=== PATIENT | female | born 2000 | race Caucasian/White ===

== ENCOUNTER → 2018-04-06 10:02 | Outpatient (CLI) | payer OTHER, SELFPAY ==
--- NOTE | 2018-04-06 10:06 | RAD_ITS ---
STUDY: X-RAY - LUMBAR SPINE REASON FOR EXAM: Female, 17 years old. Back pain for 2 months TECHNIQUE: 5 view(s) of the lumbar spine were obtained. COMPARISON: None FINDINGS: Normal lumbar lordosis. There is no substantial scoliosis. There is a normal alignment of the vertebrae. Normal vertebral bodies and endplates. Normal disc space heights. The soft tissue structures are unremarkable. RAD/L/S Spine Min 4 Views IMPRESSION: Normal x-ray examination of the lumbar spine. Electronically Signed: Nguyễn Cadet MD at 14:01 EST , Service support ,
== END ==
PROVIDERS: Family Provider Pediatrics; PCP Pediatrics; Referring Provider Pediatrics; Visit Provider Pediatrics
DX: N39.0 Urinary tract infection, site not specified (principal); M54.5 Low back pain
CPT/HCPCS: 72110; 87086

== ENCOUNTER → 2019-11-01 | Outpatient (CLI) | payer OTHER, SELFPAY | END | disposition home or self-care (01) | PROVIDERS: Referring Provider Obstetrics & Gynecology; Visit Provider Obstetrics & Gynecology | DX: Z11.3 Encounter for screening for infections with a predominantly sexual mode of transmission (principal) ==

== ENCOUNTER → 2020-02-26 12:46 | Outpatient (CLI) | payer OTHER, SELFPAY ==
[2020-02-17 11:30] VITALS: BMI 21.6
--- NOTE | 2020-02-26 12:48 | ECHOD_ITS ---
Reason For Study: CHEST PAIN, HEART MURMUR Procedure This was a 2D Doppler, Color Flow transthoracic echocardiogram. Exam performed in department. Left Ventricle Normal LV size. Left ventricular systolic function is normal. The estimated ejection fraction is 60 %. No regional wall motion abnormalities noted. Right Ventricle Normal RV size. Normal systolic function. Atria Normal left atrium. Normal right atrium. Mitral Valve Normal mitral valve. Tricuspid Valve Normal tricuspid valve. Aortic Valve Normal aortic valve. Trisinus/trileaflet aortic valve. Pulmonic Valve Normal pulmonic valve. Great Vessels Normal aortic root. The pulmonary artery is normal size. Normal inferior vena cava. Pericardium/Pleural No pericardial effusion. MMode/2D Measurements & Calculations LVIDd: 5.0 cm IVSd: 0.78 cm Ao root diam: 2.3 cm LVIDs: 3.3 cm LVPWd: 0.75 cm RVDd: 2.9 cm FS: 34.1 % LAV(MOD-bp): 40.1 ml LVAd ap4: 26.6 cm2 SV(MOD-sp4): 50.0 ml LAV(MOD-bp) Indexed: 25.0 ml/m2 EDV(MOD-sp4): 80.8 ml LAV(MOD-sp2): 39.1 ml EDV(sp4-el): 82.8 ml LAV(MOD-sp4): 35.7 ml LVAs ap4: 14.5 cm2 ESV(MOD-sp4): 30.8 ml ESV(sp4-el): 31.3 ml EF(MOD-sp4): 61.9 % EF(sp4-el): 62.2 % SV(sp4-el): 51.5 ml LA A4 area: 15.0 cm2 LA dimension(2D): 3.2 cm RA A4 area: 13.5 cm2 Time Measurements MV dec time: 0.22 sec Doppler Measurements & Calculations MV E max usman: 97.2 cm/sec Lat Peak E' Usman: 24.2 cm/sec Med Peak E' Usman: 16.5 cm/sec MV A max usman: 50.8 cm/sec E/E' lat: 4.0 E/E' med: 5.9 MV E/A: 1.9 Ao V2 max: 146.8 cm/sec LV V1 max: 98.6 cm/sec PA V2 max: 114.0 cm/sec Ao max P.6 mmHg LV V1 max P.9 mmHg TR max usman: 207.8 cm/sec TR max P.3 mmHg Interpretation Summary Normal LV size. Left ventricular systolic function is normal. The estimated ejection fraction is 60 %. Structurally normal valves. Ordering Physician: ELLEN HEADLEY Referring Physician: ELLEN HEADLEY Performed By: Radha Florez RDCS
--- NOTE | 2020-02-26 13:45 | RAD_ITS ---
STUDY: X-RAY CHEST REASON FOR EXAM: Female, 19 years old. heart murmur TECHNIQUE: PA and lateral views of the chest. COMPARISON: None. FINDINGS: The lungs are clear and expanded. There is no demonstrated pleural abnormality. Normal size heart. Normal mediastinum and roxane. Normal visualized pulmonary arteries. Normal visualized aortic arch and descending thoracic aorta. Normal visualized thoracic spine. Normal visualized ribs, clavicles, and shoulders. There is no demonstrated abnormality of the visualized soft tissue structures of the upper abdomen. RAD/Chest PA and Lateral IMPRESSION: Normal x-ray examination of the chest. Electronically Signed: Paul Quinteros MD at 17:13 EST Tel , Service support ,
== END ==
DX: R07.9 Chest pain, unspecified (principal); R01.1 Cardiac murmur, unspecified
CPT/HCPCS: 71046; 93306

== ENCOUNTER → 2020-03-02 | Outpatient (CLI) | payer OTHER, SELFPAY ==
[2020-02-17 11:30] VITALS: BMI 21.6
[2020-03-04 20:41] LABS: HPV Reflexed? NOT INDICATED
== END | disposition home or self-care (01) ==
LOC: LABSPEC 13:22
PROVIDERS: Visit Provider Student in an Organized Health Care Education/Training Program
DX: Z12.4 Encounter for screening for malignant neoplasm of cervix (principal)
CPT/HCPCS: 88175; G0145

== ENCOUNTER 2020-05-11 12:06 | Emergency (ER) | payer OTHER, SELFPAY ==
[2020-02-17 11:30] VITALS: BMI 21.6
[2020-05-11 12:07] VITALS: BP 147/74; PULSE 100; RESP 18; TEMP 36.7; O2SAT 100; BMI 20.7
[2020-05-11] MEDS: Ondansetron ODT 4 MG Tablet 8 MG PO (12:41)
[2020-05-11 13:08] LABS: Absolute Neutrophil Count 6.1 X10^3/uL (2.0-7.7); Basophil# 0.04 X10^3/uL; Basophil% 0.4 % (0-1); Eosinophils% 6.6 % (0-5); Hematocrit 41.1 % (37-47); Hemoglobin 13.7 g/dL (12.0-15.0); Lymphocyte % 20.9 % (19-41); Mean Corp Hgb Conc 33.3 g/dL (32-36); Mean Corpuscular Hgb 30.9 pg (27.0-32.0); Mean Corpuscular Volume 92.8 fL (81-99); Mean Platelet Vol. 9.2 fl (6.2-12.0); Monocyte# 0.44 X10^3/uL; Monocyte% 4.9 % (0-10); NRBC Flagged by Analyzer 0 % (0-5); Neutrophil # 6.07 X10^3/uL (2.7-7.7); Platelet Count 265 K/mm3 (150-450); RBC Distribution Width CV 12.6 % (11.6-14.6); RBC Distribution Width SD 42.9 fl (35.1-43.9); Red Blood Count 4.43 M/mm3 (4.2-5.4); White Blood Count 9.1 K/mm3 (4.4-11.0)
[2020-05-11 13:28] LABS: Anion Gap 4 (5-15); BUN 13 mg/dL (7-18); BUN/Creat Ratio 19.1 RATIO (10-20); Calcium,Total 9.5 mg/dL (8.5-10.1); Chloride 105 mmol/L (98-107); Creatinine, Serum 0.68 mg/dL (0.55-1.02); EST Glomerular Filtration Rate 115 mL/min (>60); Est Glom Filt Rate - Afr Amer 139 mL/min (>60); Estimated Creatinine Clearance 113.01 ml/min; Glucose 117 mg/dL (74-106); Potassium 3.3 mmol/L (3.5-5.1); Sodium Level 138 mmol/L (136-145)
[2020-05-11 13:30] LABS: Internal QC Validated? YES +Cl - CLEAR BKGD; Pregnancy, Serum, hCG Quali. NEGATIVE Negative
--- NOTE | 2020-05-11 14:15 | ED.DCSUM_ITS ---
History of Present Illness Chief Complaint: Nausea/Vomiting Informant: Patient - Abdominal Pain/Flank Pain Onset: Month(s) - 1 Context: Gradual Onset - seems random, but more often in AMs Timing: Intermittent Quality: - - no pain, just vomiting Worsened by: - - sometimes w/ food Relieved by: Nothing - Nausea/Vomiting/Emesis GI Symptom: Vomiting - without feeling sick Onset: Month(s) - 1 - Diarrhea/Melena/Hematochezia GI Symptom: Negative for: Diarrhea, Melena, Hematochezia Associated Symptoms: Negative for: Dysuria, Frequency, Hematuria, Urgency Narrative: Patient states she has been vomiting for the past month, not every day but most, more often in the mornings. Sometimes it is after eating but other times it is completely random without triggering with food. She denies any hematemesis. She denies any abdominal pain. She denies any bowel changes. She states her menstrual cycles have been regular, every month, and the last one started yesterday. She has had a couple of episodes of orthostasis where she stands up and feels lightheaded and if she does not sit down quickly, she briefly has passed out a couple times but none of those have been recently in the past several days. She has not injured herself. She has been trying to keep down liquids and food when she is able. She last had intercourse October of last year, and is not currently sexually active. She has a normal vaginal discharge and has had no changes from that. She denies any other vaginal symptoms. She denies any known medical problems or past surgeries. Past Medical History - Allergies and Home Meds Allergies/Adverse Reactions: Allergies No Known Allergies Allergy (Unverified 02/17/20 11:30) Primary Care Physician: ELLEN HEADLEY [Other] Smoking Status: Never smoker Drugs: None Review of Systems General: Reports: Malaise. Denies: Chills, Fever, Sweats Eyes: Denies: Visual changes - bilaterally, Diplopia ENT: Denies: Rhinorrhea, Sore throat Cardiovascular: Denies: Chest pain, Palpitations Respiratory: Denies: Dyspnea, Cough, Dyspnea on exertion Gastrointestinal: Reports: Vomiting. Denies: Abdominal pain, Diarrhea, Melena, Hematochezia Genitourinary: Denies: Dysuria, Hematuria, Frequency Musculoskeletal: Denies: Back pain, Swelling, Extremity Pain Skin: Denies: Rash, Wounds Neurological: Denies: Headache, Weakness, Numbness Physical Exam Vital Signs/Narrative: Vital Signs Temp Pulse Resp BP Pulse Ox 05/11/20 12:07 98.0 F 100 18 147/74 H 100 Inital Vital Signs reviewed: Yes General: Well nourished, Well developed, No Acute Distress - Well-appearing Head: Normocephalic, Atraumatic Eyes: Perrl, EOMI ENT: Moist mucous membranes, No rhinorrhea. Negative for: Sinus tenderness Neck: Supple, Nontender, No lymphadenopathy Cardiovascular: Regular rate, Regular rhythm, No murmurs Respiratory: No distress, CTA bilaterally, Chest nontender Abdomen: Soft, Nontender, Nondistended, Normal bowel sounds Back: Nontender, Normal Inspection Extremities: Nontender, No edema Skin: Normal color, No rash, No Trauma Neurological: Alert, Oriented x3, Cranial nerves II-XII grossly intact, Normal Strength, Normal Sensation Psychological: Normal affect, Normal Mood Diagnostic/Tx/Re-eval Laboratory Tests 05/11/20 05/11/20 05/11/20 Range/Units 13:00 13:00 13:00 WBC 9.1 (4.4-11.0) K/mm3 RBC 4.43 (4.2-5.4) M/mm3 Hgb 13.7 (12.0-15.0) g/dL Hct 41.1 (37-47) % MCV 92.8 (81-99) fL MCH 30.9 (27.0-32.0) pg MCHC 33.3 (32-36) g/dL RDW Std Deviation 42.9 (35.1-43.9) fl RDW Coeff of Armani 12.6 (11.6-14.6) % Plt Count 265 (150-450) K/mm3 MPV 9.2 (6.2-12.0) fl Immature Gran % (Auto) 0.200 (0.0-0.9) % Neut % (Auto) 67.0 (47-70) % Lymph % (Auto) 20.9 (19-41) % [place] % (Auto) 4.9 (0-10) % Eos % (Auto) 6.6 H (0-5) % Baso % (Auto) 0.4 (0-1) % Absolute Neuts (auto) 6.1 (2.0-7.7) X10^3/uL Absolute Lymphs (auto) 1.90 (0.83-4.51) X10^3/uL Nucleated RBC % 0 (0-5) % Sodium 138 (136-145) mmol/L Potassium 3.3 L (3.5-5.1) mmol/L Chloride 105 (98-107) mmol/L Carbon Dioxide 29.0 (21.0-32.0) mmol/L Anion Gap 4 L (5-15) BUN 13 (7-18) mg/dL Creatinine 0.68 (0.55-1.02) mg/dL Estim Creat Clear Calc 113.01 ml/min Est GFR (MDRD) Af Amer 139 (>60) mL/min Est GFR (MDRD) Non-Af 115 (>60) mL/min BUN/Creatinine Ratio 19.1 (10-20) RATIO Glucose 117 H (74-106) mg/dL Calcium 9.5 (8.5-10.1) mg/dL Serum , Qual NEGATIVE Negative - Medical Decision Making test is negative, potassium is a little low, the rest of her labs are unremarkable. I do not think imaging of her abdomen is going to help in this particular scenario. She was given Zofran and was able to keep down some oral fluids in addition to potassium tablets since her level was 3.3. I think would be reasonable to treat her for intraluminal disease such as gastritis and have her follow-up with her PCP, we discussed all this and she is comfortable with that plan. Prescribe Zofran to use as well. ED Disposition - Plan for ED Patient: Disposition: Home or Assisted Living Diagnosis: Vomiting, Hypokalemia due to excessive gastrointestinal loss of potassium Instructions: ED Hypokalemia, ED Diet for Vomiting or Diarrhea Adult Prescriptions: Pantoprazole Sodium [Protonix] 40 mg PO DAILY #30 tab Transmission Status: Pending to [facility] Ondansetron [Zofran Odt] 8 mg PO Q8H PRN PRN #20 tablet PRN Reason: Nausea Transmission Status: Pending to [facility] Referrals: ELLEN HEADLEY [Other] - 1-2 Weeks
[2020-05-11] MEDS: Potassium Chloride Oral Tablet 20 MEQ 40 MEQ PO (15:12)
[2020-05-11 15:16] VITALS: BP 110/53; PULSE 55; RESP 14; O2SAT 96
== END 2020-05-11 15:43 | disposition home or self-care (01) ==
PROVIDERS: Emergency Provider Emergency Medicine
DX: R11.2 Nausea with vomiting, unspecified (principal); E87.6 Hypokalemia
CPT/HCPCS: 80048; 84703; 85025; 99283

== ENCOUNTER 2020-09-13 01:35 | Emergency (ER) | payer OTHER, SELFPAY ==
[2020-08-24 12:35] VITALS: BMI 19.7
[2020-09-13 01:36] VITALS: BP 116/68; PULSE 77; RESP 16; TEMP 36.9; O2SAT 100; BMI 20.7
[2020-09-13 01:38] VITALS: BP 116/68; PULSE 77; RESP 16; TEMP 36.9; O2SAT 100
--- NOTE | 2020-09-13 01:47 | RAD_ITS ---
STUDY: X-RAY - RIGHT FOOT CLINICAL: Female, 20 years old. foot pain TECHNIQUE: 3 view(s) of the foot. COMPARISON: None. FINDINGS: Normal talus, calcaneus, and tarsal bones. Normal visualized subtalar, talonavicular, calcaneocuboid, tarsal and tarsometatarsal articulations. Normal metatarsi. Normal metatarsophalangeal joint of the great toe. Normal tibial and fibular sesamoid bones. Normal interphalangeal joint of the great toe. Normal phalanges of the great toe. Normal second through fifth metatarsophalangeal joints. Normal interphalangeal joints and phalanges of the lesser toes. The soft tissue structures are unremarkable. RAD/Foot min 3 Views IMPRESSION: Normal x-ray examination of the foot. Electronically Signed: Main Wolf MD at 2:43 EDT Tel , Service support ,
--- NOTE | 2020-09-13 02:32 | ED.VIS.LOWEX ---
HPI History of Present Illness Chief Complaint: Lower Extremity Injury Narrative Narrative: 20-year-old female presenting with right foot pain. She states she was walking yesterday and the side was unlevel and she twisted her foot awkwardly. She states is painful to walk on. She denies any numbness or tingling. She denies ankle pain or knee pain. She has tried ibuprofen at home. States he iced it for a couple of minutes but states it made it hurt so she stopped. PFSH PFSH Home Medications ondansetron HCl 4 mg tablet 4 mg PO Q6H PRN #10 tab 02/17/20 [Rx Last Taken Unknown] ondansetron 8 mg PO Q8H PRN PRN #20 tablet 05/11/20 [Rx Last Taken Unknown] pantoprazole 40 mg PO DAILY #30 tab 05/11/20 [Rx Last Taken Unknown] azithromycin 250 mg tablet See Rx Instructions PO .COMPLEX #6 tab 08/24/20 [Rx Last Taken Unknown] naproxen [Naprosyn] 500 mg PO BID PRN #30 tab 09/13/20 [Rx Last Taken Unknown] Allergy/AdvReac Type Severity Reaction Status Date / Time No Known Allergies Allergy Unverified 08/24/20 12:36 Social History Smoking Status: Never smoker ROS [facility] ED Constitutional Constitutional ED: Denies chills, fever(s) or sweats Eyes Eyes: Denies blurry vision or diplopia ENT ENT ED: Denies rhinorrhea or sore throat Cardiovascular Cardiovascular: Denies palpitations or racing heartbeat Respiratory/Chest Respiratory/Chest: Denies cough, dyspnea or sputum Gastrointestinal Gastrointestinal: Denies abdominal pain, nausea or vomiting Genitourinary Genitourinary ED: Denies dysuria or hematuria Musculoskeletal Musculoskeletal: Reports other Details: right foot pain ; Denies back pain Integumentary Denies Abrasions or rash Neurologic Neurologic: Denies headache(s) or paresthesias EXAM Physical Exam Const Vital Signs: 09/13/20 01:36 09/13/20 01:38 Temperature 98.5 F 98.5 F Temperature Source Temporal Temporal Pulse Rate 77 77 Respiratory Rate 16 16 Blood Pressure 116/68 116/68 Blood Pressure Mean 84 84 Pulse Ox 100 100 Oxygen Delivery Method Room Air Room Air Positive well nourished General Appearance ED: NAD HEENT Reports moist mucous membranes normocephalic and atraumatic Eyes PERRL Eyes Narrative: EOMI Resp normal respiratory effort, no retractions and no use of accessory muscles Cardio regular rate and regular rhythm GI non-tender and non-distended Palpation: soft Extremity Extremity Narrative: Tenderness to palpation over the dorsum of the right foot diffusely. There is slight bruising on the lateral aspect of the foot. 2+ pedal pulses. Sensation is intact. Brisk cap refill to all 5 toes. Neuro oriented x3 Sensorium / Orientation: alert Psych mental status grossly normal Skin Lesions: no lesions Rashes: no rashes MDM MDM MDM Narrative Medical decision making narrative: Patient presenting with right foot pain after twisting it while walking on uneven service. He declined analgesia in the ED. I did obtain a foot x-ray which on my interpretation shows no acute fracture or subluxation. Patient states that she is having difficulty walking and wishes to have an Quintin wrap and crutches. This was provided. I gave her a prescription for Naprosyn as well. Patient discharged home in stable condition. Impression: 1. Right foot sprain Radiography Diagnostic Testing: Radiology Impression Foot X-Ray 09/13/20 01:47 IMPRESSION: Normal x-ray examination of the foot. Electronically Signed: Main Wolf MD at 2:43 EDT Tel , Service support , Discharge Plan Triage Chief Complaint: Lower Extremity Injury ED Provider: Angel Seaman Dx/Rx/DC Orders Instructions: ED Foot Sprain Prescriptions: New naproxen [Naprosyn] 500 mg tablet 500 mg PO BID PRN (Reason: pain) Qty: 30 RF: 0 No Action ondansetron HCl [Zofran] 4 mg tablet 4 mg PO Q6H PRN (Reason: nausea and vomiting) Qty: 10 RF: 0 azithromycin 250 mg tablet See Rx Instructions PO .COMPLEX Qty: 6 RF: 0 ondansetron 4 MG tablet 8 mg PO Q8H PRN PRN (Reason: Nausea) Qty: 20 RF: 0 pantoprazole 40 MG tablet 40 mg PO DAILY Qty: 30 RF: 0 Primary Care Provider: Care Physician,No Primary Referrals: Fadia Rivera DPM [STAFF PHYSICIAN] - As Needed Care Physician,No Primary [Primary Care Provider] - Disposition Disposition: Home, Self Care Discharge Date/Time: 09/13/20 03:07
== END 2020-09-13 03:07 | disposition home or self-care (01) ==
PROVIDERS: Emergency Provider Student in an Organized Health Care Education/Training Program
DX: S93.601A Unspecified sprain of right foot, initial encounter (principal); X50.1XXA Overexertion from prolonged static or awkward postures, initial encounter; Y93.01 Activity, walking, marching and hiking; Y92.9 Unspecified place or not applicable; Y99.9 Unspecified external cause status; Z79.1 Long term (current) use of non-steroidal anti-inflammatories (NSAID); Z79.899 Other long term (current) drug therapy
CPT/HCPCS: 73630; 99283

== ENCOUNTER 2021-04-18 17:20 | Emergency (ER) | payer OTHER, SELFPAY ==
[2021-04-18 17:21] VITALS: BP 113/58; PULSE 63; RESP 16; TEMP 37.4; O2SAT 98; BMI 18.8
--- NOTE | 2021-04-18 18:00 | EDS_ITS ---
HPI HPI - GI History of Present Illness Chief Complaint: Nausea/Vomiting Informant: patient and parent Abdominal Pain/Flank Pain Onset: Days Context: Gradual Onset Timing: Continuous Quality: Aching Location: Epigastric Current Severity: Mild Maximum Severity: Mild Worsened by: Nothing Relieved by: Nothing Nausea/Vomiting/Emesis GI Symptom: Positive for Nausea and Vomiting Onset: Days Quality: Positive for Nonbilious Severity: Moderate Diarrhea/Melena/Hematochezia GI Symptom: Negative for Diarrhea, Melena and Hematochezia Associated Symptoms Associated Symptoms: Negative for Dysuria, Frequency, Hematuria and Urgency Narrative Narrative: 20-year-old female no sniffing past medical history. No prior abdominal surgeries. She does willingly admit to smoking marijuana. States since Monday she has had nausea and vomiting for last 3 days. Increasing belching. She had a prior history of this but not that lasted this long or this severe. She denies any abdominal trauma. No dysuria. No fever. No melena or hematemesis. Prior similar symptoms: Yes Recent Illness/Hospitalization: No PFSH PFSH Medical History no medical history no medical history Home Medications ondansetron HCl 4 mg tablet 4 mg PO Q6H PRN #10 tab 02/17/20 [Rx Last Taken Unknown] ondansetron 8 mg PO Q8H PRN PRN #20 tablet 05/11/20 [Rx Last Taken Unknown] pantoprazole 40 mg PO DAILY #30 tab 05/11/20 [Rx Last Taken Unknown] azithromycin 250 mg tablet See Rx Instructions PO .COMPLEX #6 tab 08/24/20 [Rx Last Taken Unknown] naproxen [Naprosyn] 500 mg PO BID PRN #30 tab 09/13/20 [Rx Last Taken Unknown] ondansetron 4 mg PO Q6H PRN #7 tab 04/18/21 [Rx Last Taken Unknown] Allergy/AdvReac Type Severity Reaction Status Date / Time No Known Allergies Allergy Verified 04/18/21 17:21 Social History Smoking Status: Never smoker ROS ROS ED ROS Narrative Nausea and vomiting. Abdominal pain. Review of Systems ROS Unobtainable: Denies due to encephalopathy Constitutional Constitutional ED: Denies fever(s) ENT ENT ED: Denies ear pain Cardiovascular Cardiovascular: Denies chest pain Respiratory/Chest Respiratory/Chest: Denies cough or dyspnea Gastrointestinal Gastrointestinal: Reports abdominal pain, nausea and vomiting Genitourinary Genitourinary ED: Denies dysuria or hematuria Musculoskeletal Musculoskeletal: Denies myalgias Integumentary Denies rash Neurologic Neurologic: Denies headache(s) Psychiatric Psychiatric: Denies depression Endocrine Endocrinology: Denies polyuria Hematologic/Lymphatic Hematologic/Lymphatic: Denies easy bruising Allergic/Immunologic Allergic/Immunologic ED: Denies urticaria EXAM Physical Exam Narrative Exam Narrative: 20-year-old female no acute distress vital signs stable afebrile. H EENT exam unremarkable other mild dry mucous memories. Neck nontender. Lungs clear to auscultation bilaterally. Heart regular rate and rhythm rate about 65 no murmur. Abdomen soft nondistended normal bowel sounds no peritoneal signs. No distention. No signs of obstruction. No hernia or mass. Moving all 4 extremities. Normal consumer services consultant strength. Normal dorsi plantar flexion. Back nontender. Neurologically awake and alert with no focal motor deficits. Const Vital Signs: 04/18/21 17:21 Temperature 99.3 F H Temperature Source Temporal Pulse Rate 63 Respiratory Rate 16 Blood Pressure 113/58 L Blood Pressure Mean 76 Pulse Ox 98 Positive well nourished and well developed; Negative for obese, cachectic, contractures or unkempt General Appearance ED: well developed and NAD; Negative for unkempt, cachectic, contractures or pallor Nutritional Appearance: Negative for cachectic or obese HEENT Reports dry mucous membranes; Denies moist mucous membranes normocephalic and atraumatic Mouth ED: Yes dry mucous membranes Mouth: dry mucous membranes Eyes PERRL and EOMs intact bilaterally Neck no lymphadenopathy, supple and no JVD General: Negative for tenderness Resp normal respiratory effort and clear to auscultation bilaterally Auscultation: Negative for rales, rhonchi or wheezes Cardio regular rate, regular rhythm, S1 normal heart sound, S2 normal heart sound and no murmurs GI non-tender, non-distended and no masses Auscultation: normoactive bowel sounds Palpation: soft; Negative for tender, guarding, rigid or rebound tenderness present Back/Spine no CVA tenderness General Back: Negative for CVA tenderness Cervical Spine: Negative for cervical spine tenderness Extremity full ROM General Extremety ED: Negative for edema or tenderness General Extremity: Negative for edema Neuro moves all extremities Sensorium / Orientation: alert, oriented to person, oriented to place and oriented to time; Negative for orientation impaired, confused, lethargic or stuporous Motor Exam: strength 5/5 throughout Psych mental status grossly normal and thought process normal Appearance: Negative for unkempt Attitude: No agitated Mood & Affect: anxious; Negative for depressed or tearful Skin no wounds General Skin Exam: Negative for jaundice or pallor Lesions: no lesions Rashes: no rashes MDM MDM MDM Narrative Medical decision making narrative: 20-year-old female with nausea and vomiting. Possibly viral syndrome also may be secondary to her using marijuana versus other etiologies. She will be treated IV fluids and IV Zofran and reassess. P.o. fluid challenge. Labs are pending. At this time she does not need any imaging. Her abdomen is benign. Repeat exam patient doing well at 7:40 PM. Exam benign. Unchanged. Abdomen soft nontender. Patient be discharged home. Instructed to stop using marijuana which may be what is causing her nausea and vomiting. Zofran for nausea. And outpatient follow-up. Lab Data Attestation: I reviewed the patient's lab results. Lab results narrative: CBC shows a white count 11. H&H 14 and 40. Normal platelets. Electrolytes unremarkable gap of 6 normal BUN and creatinine. Liver enzymes normal. Glucose 115. Normal lipase. test negative. Labs: Laboratory Results - last 24 hr 04/18/21 04/18/21 04/18/21 18:35 18:35 18:35 WBC 11.2 H RBC 4.40 Hgb 14.2 Hct 40.4 MCV 91.8 MCH 32.3 H MCHC 35.1 RDW Std Deviation 42.8 RDW Coeff of Armani 12.7 Plt Count 297 MPV 9.4 Immature Gran % (Auto) 0.400 Neut % (Auto) 85.9 H Lymph % (Auto) 10.1 L [place] % (Auto) 3.3 Eos % (Auto) 0.1 Baso % (Auto) 0.2 Absolute Neuts (auto) 9.7 H Absolute Lymphs (auto) 1.14 Nucleated RBC % 0 Sodium 138 Potassium 3.5 Chloride 105 Carbon Dioxide 27.0 Anion Gap 6 BUN 12 Creatinine 0.77 Estim Creat Clear Calc 87.20 Est GFR (MDRD) Af Amer 120 Est GFR (MDRD) Non-Af 99 BUN/Creatinine Ratio 15.6 Glucose 115 H Calcium 9.8 Total Bilirubin 0.40 AST 13 L ALT 17 Alkaline Phosphatase 40 L Total Protein 7.9 Albumin 4.2 Globulin 3.7 Albumin/Globulin Ratio 1.1 Lipase 81 Serum , Qual NEGATIVE Discharge Plan Triage Chief Complaint: Nausea/Vomiting ED Provider: Serge Sherman Dx/Rx/DC Orders Clinical Impression: Nausea & vomiting, Cannabis use disorder, mild, abuse Instructions: ED Marijuana Abuse, ED Vomiting (Adult) Prescriptions: New ondansetron 4 mg tablet,disintegrating 4 mg PO Q6H PRN (Reason: nausea and vomiting) Qty: 7 RF: 0 No Action ondansetron HCl [Zofran] 4 mg tablet 4 mg PO Q6H PRN (Reason: nausea and vomiting) Qty: 10 RF: 0 azithromycin 250 mg tablet See Rx Instructions PO .COMPLEX Qty: 6 RF: 0 ondansetron 4 MG tablet 8 mg PO Q8H PRN PRN (Reason: Nausea) Qty: 20 RF: 0 pantoprazole 40 MG tablet 40 mg PO DAILY Qty: 30 RF: 0 naproxen [Naprosyn] 500 mg tablet 500 mg PO BID PRN (Reason: pain) Qty: 30 RF: 0 Primary Care Provider: Care Physician,No Primary Referrals: Arabella Whaley MD [NON-STAFF] - 3-5 Days if not improving Care Physician,No Primary [Primary Care Provider] - Activity Restrictions/Additional Instructions: Plenty of fluids and rest. Zofran as needed for nausea Stop smoking marijuana that may be the cause of your nausea and vomiting. Follow-up with a local primary care physician. Disposition Disposition: Home, Self Care
[2021-04-18] MEDS: 0.9% Normal Saline 1,000 ML 1000 ML IV (18:43)
[2021-04-18] MEDS: Ondansetron 4 MG/2 ML Vial IV (18:43)
[2021-04-18 18:52] LABS: Absolute Lymphocyte Count 1.14 X10^3/uL (0.83-4.51); Absolute Neutrophil Count 9.7 X10^3/uL (2.0-7.7); Basophil# 0.02 X10^3/uL; Basophil% 0.2 % (0-1); Eosinophil# 0.01 X10^3/uL; Eosinophils% 0.1 % (0-5); Hematocrit 40.4 % (37-47); Hemoglobin 14.2 g/dL (12.0-15.0); Lymphocyte # 1.14 X10^3/ul (0.83-4.51); Lymphocyte % 10.1 % (19-41); Mean Corp Hgb Conc 35.1 g/dL (32-36); Mean Corpuscular Hgb 32.3 pg (27.0-32.0); Mean Corpuscular Volume 91.8 fL (81-99); Mean Platelet Vol. 9.4 fl (6.2-12.0); Monocyte# 0.37 X10^3/uL; Monocyte% 3.3 % (0-10); NRBC Flagged by Analyzer 0 % (0-5); Neutrophil # 9.66 X10^3/uL (2.7-7.7); Neutrophil % 85.9 % (47-70); Platelet Count 297 K/mm3 (150-450); RBC Distribution Width CV 12.7 % (11.6-14.6); RBC Distribution Width SD 42.8 fl (35.1-43.9); White Blood Count 11.2 K/mm3 (4.4-11.0)
[2021-04-18 19:10] LABS: ALB/GLOB Ratio 1.1 RATIO (0.9-2.4); AST(SGOT) 13 U/L (15-37); Alanine Aminotransfer ALT/SGPT 17 U/L (13-56); Albumin, Serum 4.2 g/dL (3.2-5.0); Alkaline Phosphatase 40 U/L (45-117); Anion Gap 6 (5-15); BUN 12 mg/dL (7-18); BUN/Creat Ratio 15.6 RATIO (10-20); Calcium,Total 9.8 mg/dL (8.5-10.1); Chloride 105 mmol/L (98-107); Creatinine, Serum 0.77 mg/dL (0.55-1.02); EST Glomerular Filtration Rate 99 mL/min (>60); Est Glom Filt Rate - Afr Amer 120 mL/min (>60); Globulin 3.7 g/dL (2.2-4.2); Glucose 115 mg/dL (74-106); Lipase 81 U/L (73-393); Potassium 3.5 mmol/L (3.5-5.1); Protein, Total 7.9 g/dL (6.4-8.2); Sodium Level 138 mmol/L (136-145)
[2021-04-18 19:19] LABS: Internal QC Validated? YES +Cl - CLEAR BKGD; Pregnancy, Serum, hCG Quali. NEGATIVE Negative
== END 2021-04-18 20:10 | disposition home or self-care (01) ==
PROVIDERS: Emergency Provider Emergency Medicine; Visit Provider Emergency Medicine
DX: R11.2 Nausea with vomiting, unspecified (principal); F12.10 Cannabis abuse, uncomplicated; R14.2 Eructation; Z79.1 Long term (current) use of non-steroidal anti-inflammatories (NSAID)
CPT/HCPCS: 80053; 83690; 84703; 85025; 96361; 96374; 99285; J7030; A4216; J2405

== ENCOUNTER → 2021-10-04 | Outpatient (CLI) | payer OTHER, SELFPAY ==
[2021-10-08 13:31] LABS: HPV Reflexed? NOT INDICATED
== END | disposition home or self-care (01) ==
LOC: LABSPEC 16:18
PROVIDERS: Visit Provider Student in an Organized Health Care Education/Training Program
DX: Z12.4 Encounter for screening for malignant neoplasm of cervix (principal)
CPT/HCPCS: 88175; G0145

== ENCOUNTER → 2022-01-12 | Outpatient (CLI) | payer OTHER, SELFPAY | END | disposition home or self-care (01) | LOC: LABSPEC 16:11 | PROVIDERS: Visit Provider Obstetrics & Gynecology | DX: R30.0 Dysuria (principal); N76.0 Acute vaginitis | CPT/HCPCS: 87086; 87088 ==

== ENCOUNTER → 2022-10-10 | Outpatient (CLI) | payer OTHER, SELFPAY ==
[2022-10-10 13:19] LABS: Absolute Lymphocyte Count 1.41 X10^3/uL (0.83-4.51); Absolute Neutrophil Count 6.8 X10^3/uL (2.0-7.7); Basophil# 0.04 X10^3/uL; Basophil% 0.4 % (0-1); Eosinophil# 0.16 X10^3/uL; Eosinophils% 1.8 % (0-5); Hematocrit 37.4 % (37-47); Hemoglobin 12.3 g/dL (12.0-15.0); Lymphocyte # 1.41 X10^3/ul (0.83-4.51); Lymphocyte % 15.6 % (19-41); Mean Corp Hgb Conc 32.9 g/dL (32-36); Mean Corpuscular Hgb 30.4 pg (27.0-32.0); Mean Corpuscular Volume 92.3 fL (81-99); Mean Platelet Vol. 9.7 fl (6.2-12.0); Monocyte# 0.57 X10^3/uL; Monocyte% 6.3 % (0-10); NRBC Flagged by Analyzer 0 % (0-5); Neutrophil % 75.6 % (47-70); Platelet Count 263 K/mm3 (150-450); RBC Distribution Width CV 12.2 % (11.6-14.6); RBC Distribution Width SD 41.4 fl (35.1-43.9); Red Blood Count 4.05 M/mm3 (4.2-5.4)
[2022-10-10 21:38] LABS: HIV - WCH Non-Reactive (Nonreactive); Hepatitis B Surface Antigen Non-Reactive (Nonreactive); Hepatitis C Antibody Non-Reactive (Nonreactive); Rubella IgG Non-Reactive (Nonreactive); Syphilis Antibodies Non-reactive
[2022-10-12 05:07] LABS: V-Zoster IgG (Immunity) < 135 index (Immune >165)
== END | disposition home or self-care (01) ==
LOC: WOBLAB 12:04
PROVIDERS: Visit Provider Student in an Organized Health Care Education/Training Program
DX: Z34.81 Encounter for supervision of other normal pregnancy, first trimester (principal); Z3A.00 Weeks of gestation of pregnancy not specified
CPT/HCPCS: 36415; 85025; 86703; 86762; 86780; 86787; 86803; 87077; 87086; 87088; 87186; 87340

== ENCOUNTER → 2022-12-02 | Outpatient (CLI) | payer OTHER, SELFPAY ==
[2022-12-06 07:08] LABS: Chlamydia By Nucleic Acid AMP Negative (Negative); Gonococcus By Nucleic Acid AMP Negative (Negative)
== END | disposition home or self-care (01) ==
LOC: LABSPEC 16:49
PROVIDERS: Referring Provider Advanced Practice Midwife; Visit Provider Advanced Practice Midwife
DX: O09.90 Supervision of high risk pregnancy, unspecified, unspecified trimester (principal); Z3A.00 Weeks of gestation of pregnancy not specified
CPT/HCPCS: 87077; 87086; 87088; 87186; 87491; 87591

== ENCOUNTER → 2022-12-28 | Outpatient (CLI) | payer OTHER, SELFPAY | END | disposition home or self-care (01) | LOC: LAB 13:15 | PROVIDERS: Referring Provider Nurse Practitioner Women's Health; Visit Provider Nurse Practitioner Women's Health | DX: O09.899 Supervision of other high risk pregnancies, unspecified trimester (principal); Z28.39 Other underimmunization status; Z3A.00 Weeks of gestation of pregnancy not specified | CPT/HCPCS: 87070; 87077; 87186; 87205 ==

== ENCOUNTER → 2022-12-30 | Outpatient (CLI) | payer OTHER, SELFPAY | END | disposition home or self-care (01) | LOC: US 14:25 | PROVIDERS: Referring Provider Advanced Practice Midwife; Visit Provider Advanced Practice Midwife | DX: Z00.00 Encounter for general adult medical examination without abnormal findings (principal) ==

== ENCOUNTER → 2023-01-25 | Outpatient (CLI) | payer OTHER, SELFPAY | END | disposition home or self-care (01) | LOC: LABSPEC 16:06 | PROVIDERS: Referring Provider Obstetrics & Gynecology; Visit Provider Obstetrics & Gynecology | DX: O26.899 Other specified pregnancy related conditions, unspecified trimester (principal); R30.0 Dysuria; Z3A.00 Weeks of gestation of pregnancy not specified | CPT/HCPCS: 87077; 87086; 87088; 87186 ==

== ENCOUNTER → 2023-02-21 | Outpatient (CLI) | payer OTHER, SELFPAY ==
[2023-02-21 13:22] LABS: Absolute Lymphocyte Count 0.97 X10^3/uL (0.83-4.51); Absolute Neutrophil Count 7.6 X10^3/uL (2.0-7.7); Basophil# 0.02 X10^3/uL; Basophil% 0.2 % (0-1); Eosinophil# 0.09 X10^3/uL; Hematocrit 31.2 % (37-47); Hemoglobin 10.9 g/dL (12.0-15.0); Lymphocyte # 0.97 X10^3/ul (0.83-4.51); Lymphocyte % 10.5 % (19-41); Mean Corp Hgb Conc 34.9 g/dL (32-36); Mean Corpuscular Hgb 32.6 pg (27.0-32.0); Mean Corpuscular Volume 93.4 fL (81-99); Mean Platelet Vol. 9.1 fl (6.2-12.0); Monocyte# 0.46 X10^3/uL; NRBC Flagged by Analyzer 0 % (0-5); Neutrophil # 7.64 X10^3/uL (2.7-7.7); Neutrophil % 82.8 % (47-70); Platelet Count 231 K/mm3 (150-450); RBC Distribution Width CV 12.8 % (11.6-14.6); RBC Distribution Width SD 43.5 fl (35.1-43.9); Red Blood Count 3.34 M/mm3 (4.2-5.4); White Blood Count 9.2 K/mm3 (4.4-11.0)
[2023-02-21 13:34] LABS: Glucose Challenge Gest 1H 50g 190 mg/dL (70-140)
[2023-02-21 14:22] LABS: HIV - WCH Non-Reactive (Nonreactive); Syphilis Antibodies Non-reactive
[2023-02-23 22:06] LABS: Chlamydia By Nucleic Acid AMP Negative (Negative); Gonococcus By Nucleic Acid AMP Negative (Negative)
== END | disposition home or self-care (01) ==
PROVIDERS: Nurse Practitioner Women's Health; Referring Provider Obstetrics & Gynecology; Visit Provider Obstetrics & Gynecology
DX: O23.599 Infection of other part of genital tract in pregnancy, unspecified trimester (principal); N76.0 Acute vaginitis; Z3A.00 Weeks of gestation of pregnancy not specified; O99.891 Other specified diseases and conditions complicating pregnancy
CPT/HCPCS: 36415; 82950; 85025; 86703; 86780; 87070; 87205; 87491; 87591

== ENCOUNTER 2023-03-08 14:00 | Outpatient (RCR) | payer OTHER, SELFPAY | END 2023-03-22 23:59 | LOC: DC 14:00 | PROVIDERS: Referring Provider Nurse Practitioner Women's Health; Visit Provider Nurse Practitioner Women's Health | DX: O24.419 Gestational diabetes mellitus in pregnancy, unspecified control (principal) | CPT/HCPCS: 97802; 97803 ==

== ENCOUNTER → 2023-03-23 | Outpatient (CLI) | payer OTHER, SELFPAY ==
--- NOTE | 2023-03-23 10:10 | US_ITS ---
STUDY: SECOND AND THIRD TRIMESTER OBSTETRICAL ULTRASOUND-Limited REASON FOR EXAM: Female, 22 years old routine survey LMP: 08/07/2022 TECHNIQUE: Transabdominal TECHNICAL QUALITY: Adequate. PRIOR ULTRASOUND: None. FINDINGS: There is a single intrauterine fetus. The fetus is in a cephalic presentation. There is demonstrated cardiac activity with a heart rate of 155 bpm. There is a normal amniotic fluid volume. The largest amniotic fluid pocket measures 5.5 cm. The amniotic fluid index (JAQUAN) is 13.8 cm. The placenta is anterior in location and is not low lying. There are Grade 2 placental changes. The cervix was not measured BIOMETRY: BPD: 8.1 cm: 32 weeks, 4 days HC: 29.81 cm: 33 weeks, 0 days AC: 29.12 cm: 33 weeks, 1 days FL: 6.09 cm: 31 weeks, 5 days age by current US: 32 weeks, 4 days. NAUN by current US: 05/14/2023. Estimated weight: 2030 grams, +/- 304 grams, 44 %. Age by LMP: 32 weeks, 4 days. NAUN by LMP: 05/14/2023. US/OB Limited With Biometrics IMPRESSION: Single live intrauterine of 32 weeks 4 days by current ultrasound with NAUN of 05/14/2023. Heart rate of 155 bpm. No suspicious sonographic findings. Electronically Signed: Nguyễn Cadet MD at 14:26 EST ,
--- NOTE | 2023-03-23 12:57 | US_ITS ---
STUDY: OBSTETRICAL ULTRASOUND - BIOPHYSICAL PROFILE REASON FOR EXAM: Female, 22 years old non reactive NST LMP: August 07, 2022. PRIOR ULTRASOUND: None. TECHNIQUE: Transabdominal TECHNICAL QUALITY: Adequate. FINDINGS: There is a single intrauterine fetus. The fetus is in a cephalic presentation. There is demonstrated cardiac activity with a heart rate of 155 bpm. There is a normal amniotic fluid volume. The largest amniotic fluid pocket measures 4.8 cm. The amniotic fluid index (JAQUAN) is 14.1 cm. The placenta is anterior in location and is not low lying. There are Grade 2 placental changes. Age by LMP: 32 weeks, 4 days. NAUN by LMP: May 14, 2023. age by prior US: 32 weeks, 4 days. NAUN by prior US: May 14, 2023. Gender: Female BIOPHYSICAL PROFILE: Breathing Movements (FBM): 2 Gross Body Movements (GBM): 2 Tone (FT): 2 Amniotic Fluid Volume (AFV): 2 TOTAL SCORE: 8 / 8 US/Biophysical Prof W/O Non Stres IMPRESSION: Normal biophysical profile of 8/8. Electronically Signed: Jay Ratliff MD at 14:08 EST ,
== END | disposition home or self-care (01) ==
PROVIDERS: Referring Provider Obstetrics & Gynecology; Visit Provider Obstetrics & Gynecology
DX: O99.891 Other specified diseases and conditions complicating pregnancy (principal); N89.8 Other specified noninflammatory disorders of vagina; O24.419 Gestational diabetes mellitus in pregnancy, unspecified control; Z3A.32 32 weeks gestation of pregnancy
CPT/HCPCS: 76816; 76819; 87070; 87077; 87186; 87205

== ENCOUNTER 2023-04-07 15:28 | Outpatient (CLI) | payer OTHER, SELFPAY ==
[2023-04-07 15:41] VITALS: BP 108/64; PULSE 83
[2023-04-07 15:47] VITALS: BMI 28.6
--- NOTE | 2023-04-07 16:08 | US_ITS ---
STUDY: OBSTETRICAL ULTRASOUND - BIOPHYSICAL PROFILE REASON FOR EXAM: Female, 22 years old NST not reactive in office LMP: 08/07/2022 PRIOR ULTRASOUND: None. TECHNIQUE: Transabdominal TECHNICAL QUALITY: Adequate. FINDINGS: There is a single intrauterine fetus. The fetus is in a cephalic presentation. There is demonstrated cardiac activity with a heart rate of 138 bpm. There is a normal amniotic fluid volume. The largest amniotic fluid pocket measures 3.6 cm. The amniotic fluid index (JAQUAN) is 9.9 cm. The placenta is anterior in location and is not low lying. There are Grade 2 placental changes. Age by LMP: 34 weeks, 5 days. NAUN by LMP: 05/14/2023. age by prior US: 34 weeks, 5 days. NAUN by prior US: 05/14/2023. BIOPHYSICAL PROFILE: Breathing Movements (FBM): 2 Gross Body Movements (GBM): 2 Tone (FT): 2 Amniotic Fluid Volume (AFV): 2 TOTAL SCORE: 8 / 8 US/Biophysical Prof W/O Non Stres IMPRESSION: Normal biophysical profile of 8/8. Electronically Signed: Nicola Choudhary MD at 17:15 EST ,
--- OUTSIDE RECORDS SUMMARY | 2023-04-07 17:30 | XMS RPT_ITS | CCD ---
Author Name Unknown Address [address] [place] [address] Organization [facility] Care Team Providers Care Shade Cloth Finisher Name Role Phone Alberteulalio Donnie F Unavailable Unavailable Babar Sinclair Unavailable Unavailable Now Nurse Unavailable Unavailable Medications Completed/Discontinued Medications Medication Drug Class(es) Dates Sig (Normalized) Sig (Original) acetaminophen 325 mg oral capsule (1 source) Start: 07-13-2016 TYLENOL 325 MG CAPS as directed ACETAMINOPHEN [id number] Nara N Cogar REHABILITATION SERVICES AIDE ibuprofen 200 mg oral capsule (1 source) Nonsteroidal Anti-inflammatory Drug Start: 07-13-2016 IBUPROFEN 200 MG CAPS as directed IBUPROFEN [id number] Nara Friedman [employer] REHABILITATION [employer] AIDE Problems Active Problems Problem Classification Problem Date Documented Da te Episodic/Chronic Unclassified (1 source) Unknown / UNK(Unknown) Onset: 07-02-2017 Past or Other Problems Problem Classification Problem Date Documented Da te Episodic/Chronic Headache, including migraine (1 source) Headache, including migraine Onset: 07-02-2017 Other non-traumatic joint disorders (1 source) Pain in wrist; Translations: [Pain in left wrist] Onset: 07-13-2016 07-13-2016 Episodic Sprains and strains (1 source) Unspecified sprain of left wrist, initial encounter; Translations: [Unspecified sprain of left wrist, initial encounter] Onset: 07-13-2016 07-13-2016 Episodic Results Test Name Value Interpretation Reference Range Facil ity Vital Signs Date Time Vital Sign Value Performing Clinician Delilah maria 07-13-2016 07:45-0400 BMI (Body Mass Index) 26.77 kg/m2 [facility] Work Phone: 07-13-2016 07:45-0400 Body Temperature 98.4 [degF] [facility] Work Phone: 07-13-2016 07:45-0400 Body weight 70.76 kg [facility] Work Phone: 07-13-2016 07:45-0400 BP Diastolic 74 mm[Hg] [facility] Work Phone: 07-13-2016 07:45-0400 BP Systolic 118 mm[Hg] [facility] Work Phone: 07-13-2016 07:45-0400 Height 162.56 cm [facility] Work Phone: 07-13-2016 07:45-0400 Pulse (Heart Rate) 73 /min [facility] Work Phone: 07-13-2016 07:45-0400 Pulse Oximetry 98 % [facility] Work Phone: 07-13-2016 07:45-0400 Respiratory Rate 12 /min [facility] Work Phone: Encounters Encounter Date Encounter Type Care Provider Facility Start: 09-18-2017 Patient encounter Babar Rasheed cility:[facility] Start: 07-02-2017 Patient encounter Donnie moonty:[facility] Procedures Date Procedure Procedure Detail Performing Clinician Start: 07-13-2016 End: 07-13-2016 Documentation of current medications Plan of Treatment Date Care Activity Detail Author Start: 07-13-2016 End: 07-13-2016 Appointment Appointment [facility] Work Phone: Start: 07-13-2016 End: 07-13-2016 Radex wrist complete minimum 3 views X-Ray, Wrist [facility] Work Phone: Patient Education ACETAMINOPHEN% 20AND%20IB UPROFEN%20DOSING%20IN%20 CHILDREN [facility] Work Phone: Payers Date Payer Category Payer Unknown [id number] Summary Purpose Family History No Family History Records Found Advance Directives No Advanced Directives Records Found Additional Source Comments INFORMATION SOURCE (unrecogn ized section and content) FOR RECORDS PERTAINING TO PATIENTS WHO ARE OR HAVE BEEN ENROLLED IN A CHEMICAL DEPENDENCY/SUBSTANCEABUSE PROGRAM, SOME INFORMATION MAY BE OMITTED. This clinical summary was aggregated from multiple sources. Caution should be exercised in using it in the provision of clinical care. This summary normalizes information from multiple sources, and as a consequence, information in this document may materially change the coding, format and clinical context of patient data. In addition, data may be omitted in some cases. CLINICAL DECISIONS SHOULD BE BASED ON THE PRIMARY CLINICAL RECORDS. [facility]. provides no warranty or guarantee of the accuracy or completeness of information in this document.
--- NOTE | 2023-04-08 07:13 | OB.TRI.PN_ITS ---
Progress Notes Date of Service: 04/07/23 Progress Note: Patient presents for triage evaluation secondary to non reactive nst FHT: 140 Moderate variability reactive no decelerations category I tracing [place]: no regaulr Contractions Assessment and plan: non reactive nst now reactive nst and 09/27 bpp Reactive NST, reassuring maternal and status patient discharged to home to follow-up as scheduled. See problem list details for additional plan information. Charges/Coding Procedures Urinary/Genital 52xxx-59xxx: 15776-14 non-stress test Interp
== END 2023-04-07 17:03 | disposition home or self-care (01) ==
LOC: WPOUT 15:29 → WP 15:29
PROVIDERS: Referring Provider Obstetrics & Gynecology; Visit Provider Obstetrics & Gynecology
DX: O36.8330 Maternal care for abnormalities of the fetal heart rate or rhythm, third trimester, not applicable or unspecified (principal); Z3A.34 34 weeks gestation of pregnancy
CPT/HCPCS: 59025; 59050; 76819; 99221; G0378

== ENCOUNTER 2023-04-24 15:09 | Outpatient (CLI) | payer OTHER, SELFPAY ==
--- NOTE | 2023-04-24 16:02 | OB.TRI.HP_ITS ---
HPI - General General Date of Service: 04/24/23 Chief Complaint: non reactive NST HPI Narrative FIDENCIO BONDS, is a 22 F who presents at 37 weeks with non-reactive NST. JAQUAN on growth scan today is 14. Maternal Data Information NAUN Calculator Estimated Delivery Date Method Current WG Current Estimate 05/14/23 LMP (Certain) 37w 1d PFSH PFSH Home Medications multivitamin no.47-iron fum 27 mg-folate no.1 1 mg-dha 300 mg capsule (PNV-DHA) cap PO 12/02/22 [History Last Taken Unknown] blood sugar diagnostic (Blood Glucose Test strips) #120 ea 02/22/23 [Rx Last Taken Unknown] blood-glucose meter #1 ea 02/22/23 [Rx Last Taken Unknown] lancets #200 ea 02/22/23 [Rx Last Taken Unknown] metformin 500 mg tablet,extended release 24 hr 500 mg PO BID #60 tabs 03/08/23 [Rx Last Taken Unknown] Allergy/AdvReac Type Severity Reaction Status Date / Time No Known Allergies Allergy Verified 04/24/23 13:54 Family History Grandmother Breast cancer, Onset Age: 70 Grandfather CVA (cerebral vascular accident) Myocardial infarction Social History adopted: No household members: significant other and other housing: house current occupational status: employed current occupation: [employer] pets and animals: No history of recent travel: No sexually active: Yes Smoking Status: Never smoker alcohol intake: never substance use type: does not use caffeine: Yes seatbelt use: always do you feel safe at home: Yes History 1 Elective abortions Hx Para Spontaneous abortions Hx # Term Pregnancies Ectopic pregnancies Hx # Pregnancies Multiple births # of living children Visit Details Expected Delivery Route/Plan Labor Preferences- CB/BF classes: encouraged labor support person: Oliver labor intervention preferences: pain management options preferred: epidural if requested cut cord/dad catch: cord : yes PP control planned: discussed discussed possible routes of delivery and associated risks: [] special requests: [] Plans Covid status: [] Flu vaccine: declines Tdap vaccine: 02/21/23 Rhogam: NA LARC form signed: yes movement and labor precautions reviewed. Problem list reviewed and updated with the most current plan of care details and appropriate orders placed. Relevant counseling for the gestational age provided. Continue routine care and follow up unless otherwise noted in visit notes/problem list details OB Flowsheet Initial Weight: 143 lb Date -?-?-?-?-?-?-?-?-?-?-?-?- EGA Weight BP Urine Prot -?-?-?-?-?-?-?-?-?-?-?-?- Glucose FHR FuHt Pres Dilation -?-?-?-?-?-?-?-?-?-?-?-?- Effaced St Visit Note 12/02/22 -?-?-?-?-?-?-?-?-?-?-?-?- 16w 5d 143 lb 2 oz (+2 oz) 124/73 -?-?-?-?-?-?-?-?-?-?-?-?- 150 -?-?-?-?-?-?-?-?-?-?-?-?- KW-no vb/lof. cr amping and burning with urination. Culture sent. Anatomy US ordered. 12/28/22 -?-?-?-?-?-?-?-?-?-?-?-?- 20w 3d 150 lb 2 oz (+7 lb 2 oz) 98/66 Negative -?-?-?-?-?-?-?-?-?-?-?-?- Negative 154 0 -?-?-?-?-?-?-?-?-?-?-?-?- MH-continues to have vag bleeding:friable cervix, yeast. Cervic closed. Recheck JV and fluconazole sent. MH-continues to have vag ble eding:friable cervix, yeast. Cervic closed. Recheck JV and fluconazole sent. JV- pt bleeding since 16 weeks. became w orse last night after intercourse. suspect ectropion and yeast infection. no sex or anything in vagina. monistat made her feel worse. will try diflucan. 01/25/23 -?-?-?-?-?-?-?-?-?-?-?-?- 24w 3d 158 lb 6 oz (+15 lb 6 oz) 105/67 Negative -?-?-?-?-?-?-?-?-?-?-?-?- Negative 150 -?-?--?-?-?-?-?-?-?-?-?-?- JV- pt complains of burning with urination again. JV- pt complains of burning with urination again. has had several gbs uti's will start ampicillin prophylaxis daily after this treatment course. 02/21/23 -?-?-?-?-?-?-?-?-?-?-?-?- 28w 2d 160 lb 6 oz (+17 lb 6 oz) 104/64 Negative -?-?-?-?-?-?-?-?-?-?-?-?- Negative 145 28 -?-?-?-?-?-?-?-?-?-?-?-?- -No Vb. Galdino napoles. Persistent vag discharge and irritation. See exam/cultures done. Tdap, larc, 28 wk labs. 03/08/23 -?-?-?-?-?-?-?-?-?-?-?-?- 30w 3d 165 lb 6 oz (+22 lb 6 oz) 124/77 Negative -?-?-?-?-?-?-?-?-?-?-?-?- Negative 140 30 -?-?-?-?-?-?-?-?-?-?-?-?- JV- starting met formin for elevated glucose levels both fasting and 2 hr pp. start nsts next visit 03/13/23 -?-?-?-?-?-?-?-?-?-?-?-?- 31w 1d 163 lb (+20 lb) 124/78 -?-?-?-?-?-?-?-?-?-?-?-?- 130 -?-?-?-?-?-?-?-?-?-?-?-?- -NST only reac tive 03/16/23 -?-?-?-?-?-?-?-?-?-?-?-?- 31w 4d 164 lb 6 oz (+21 lb 6 oz) 133/78 Negative -?-?-?-?-?-?-?-?-?-?-?-?- Negative 140 32 -?-?-?-?-?-?-?-?-?-?-?-?- SM- no vb lof go od fm no regular ctx BS reveiwed 03/20/23 -?-?-?-?-?-?-?-?-?-?-?-?- 32w 1d 164 lb 8 oz (+21 lb 8 oz) 102/70 Negative -?-?-?-?-?-?-?-?-?-?-?-?- Negative 140 -?-?-?-?-?-?-?-?-?-?-?-?- -NST only reac tive. 03/23/23 -?-?-?-?-?-?-?-?-?-?-?-?- 32w 4d 167 lb 6 oz (+24 lb 6 oz) 116/74 Negative -?-?-?-?-?-?-?-?-?-?-?-?- Negative 140 32 -?-?-?-?-?-?-?-?-?-?-?-?- SM- no vb lof go od fm no regular ctx BS controlled 03/27/23 -?-?-?-?-?-?-?-?-?-?-?-?- 33w 1d 169 lb 4 oz (+26 lb 4 oz) 107/70 -?-?-?-?-?-?-?-?-?-?-?-?- 140 -?-?-?-?-?-?-?-?-?-?-?-?- -NST only reac tive 03/30/23 -?-?-?-?-?-?-?-?-?-?-?-?- 33w 4d 165 lb (+22 lb) 89/59 Negative -?-?-?-?-?-?-?-?-?-?-?-?- Negative 145 -?-?-?-?-?-?-?-?-?-?-?-?- KW- no vb/lof/ct x. good fm. NST reactive. BS in range. 36 week US scheduled. no concerns today. 04/04/23 -?-?-?-?-?-?-?-?-?-?-?-?- 34w 2d 166 lb 2 oz (+23 lb 2 oz) 104/70 Negative -?-?-?--?-?-?-?-?-?-?-?-?- Negative 140 -?-?-?-?-?-?-?-?-?-?-?-?- SM- NST reactive ,BS fairly controlled 04/07/23 -?-?-?-?-?-?-?-?-?-?-?-?- 34w 5d 166 lb 2 oz (+23 lb 2 oz) 118/75 Negative -?-?-?-?-?-?-?-?-?-?-?-?- Negative 140 -?-?-?-?-?-?-?-?-?-?-?-?- KW- NST only tod ay. reassuring but does not meet criteria. to WP for BPP. Reports elevated BS after meals around 150 at times but not tracking them well. encouraged to track them to adjust meds if needed. 04/10/23 -?-?-?-?-?-?-?-?-?-?-?-?- 35w 1d 167 lb (+24 lb) 120/70 Negative -?-?-?-?-?-?-?-?-?-?-?-?- Negative 140 -?-?-?--?-?-?-?-?-?-?-?-?- MH-NST only and reactive. Did not bring glucose readings but states last couple of days nl. Will bring for appt in 2 days. 04/13/23 -?-?-?-?-?-?-?-?-?-?-?-?- 35w 4d 167 lb (+24 lb) 112/87 Negative -?-?-?-?-?-?-?-?-?-?-?-?- Negative 140 -?-?-?-?-?-?-?-?-?-?-?-?- SM- no vb lof go od fm no regular ctx 04/20/23 -?-?-?-?-?-?-?-?-?-?-?-?- 36w 4d 171 lb (+28 lb) 107/66 Negative -?-?-?-?-?-?-?-?-?-?-?-?- Negative 140 36 Cephalic -?-?-?-?-?-?-?-?-?-?-?-?- SM- no vb lof go od fm no regular ctx BS fairly controlled 04/24/23 -?-?-?-?-?-?-?-?-?-?-?-?- 37w 1d 168 lb 8 oz (+25 lb 8 oz) 105/66 Negative -?-?-?-?-?-?-?-?-?-?-?-?- Negative 130 -?-?-?-?-?-?-?-?-?-?-?-?- LC- no vb/ctx. l ess fm today. BS overall controlled, forgets to do fastings at times, when does are 80-90s. pp mostly 100-130.NST not reactive, with variables. BPP ordered. LC- no vb/ctx. less fm today . BS overall controlled, forgets to do fastings at times, when does are 80-90s. pp mostly 100-130.NST not reactive, with variables. sending to for extended monitoring and BPP ordered. NST FHR Rate Baby A Baseline: 135 Variability:: Moderate Accelerations:: 15 x 15 Decelerations:: None NST Reactive:: Yes FHR Category:: Category I Assessment & Plan (1) Non-reactive NST (non-stress test): COMMENT: extended monitoring in with cat 1 tracing, multiple accelerations. jaquan completed today 04/23 =14. safe for d/c home PLAN: Plan Patient presents for triage evaluation secondary to non-reactive nst in office. now with multiple accelerations with no decels FHT: Moderate variability reactive no decelerations category I tracing [place]: no Contractions Assessment and plan: Reactive NST, reassuring maternal and status patient discharged to home to follow-up in office. See problem list details for additional plan information. Charges/Coding Procedures Urinary/Genital 52xxx-59xxx: 96294-22 non-stress test Interp
--- NOTE | 2023-04-24 16:02 | OB.TRI.NOTE ---
HPI - General General Date of Service: 04/24/23 Chief Complaint: non reactive NST HPI Narrative FIDENCIO BONDS, is a 22 F who presents at 37 weeks with non-reactive NST. JAQUAN on growth scan today is 14. Maternal Data Information NAUN Calculator Estimated Delivery Date Method Current WG Current Estimate 05/14/23 LMP (Certain) 37w 1d PFSH PFSH Home Medications multivitamin no.47-iron fum 27 mg-folate no.1 1 mg-dha 300 mg capsule (PNV-DHA) cap PO 12/02/22 [History Last Taken Unknown] blood sugar diagnostic (Blood Glucose Test strips) #120 ea 02/22/23 [Rx Last Taken Unknown] blood-glucose meter #1 ea 02/22/23 [Rx Last Taken Unknown] lancets #200 ea 02/22/23 [Rx Last Taken Unknown] metformin 500 mg tablet,extended release 24 hr 500 mg PO BID #60 tabs 03/08/23 [Rx Last Taken Unknown] Allergy/AdvReac Type Severity Reaction Status Date / Time No Known Allergies Allergy Verified 04/24/23 13:54 Family History Grandmother Breast cancer, Onset Age: 70 Grandfather CVA (cerebral vascular accident) Myocardial infarction Social History adopted: No household members: significant other and other housing: house current occupational status: employed current occupation: [employer] pets and animals: No history of recent travel: No sexually active: Yes Smoking Status: Never smoker alcohol intake: never substance use type: does not use caffeine: Yes seatbelt use: always do you feel safe at home: Yes History 1 Elective abortions Hx Para Spontaneous abortions Hx # Term Pregnancies Ectopic pregnancies Hx # Pregnancies Multiple births # of living children Visit Details Expected Delivery Route/Plan Labor Preferences- CB/BF classes: encouraged labor support person: Oliver labor intervention preferences: pain management options preferred: epidural if requested cut cord/dad catch: cord : yes PP control planned: discussed discussed possible routes of delivery and associated risks: [] special requests: [] Plans Covid status: [] Flu vaccine: declines Tdap vaccine: 02/21/23 Rhogam: NA LARC form signed: yes movement and labor precautions reviewed. Problem list reviewed and updated with the most current plan of care details and appropriate orders placed. Relevant counseling for the gestational age provided. Continue routine care and follow up unless otherwise noted in visit notes/problem list details OB Flowsheet Initial Weight: 143 lb Date <del>?</del> EGA Weight BP Urine Prot <del>?</del> Glucose FHR FuHt Pres Dilation <del>?</del> Effaced St Visit Note 12/02/22 <del>?</del> 16w 5d 143 lb 2 oz (+2 oz) 124/73 <del>?</del> 150 <del>?</del> KW-no vb/lof. cramping and burning with urination. Culture sent. Anatomy US ordered. 12/28/22 <del>?</del> 20w 3d 150 lb 2 oz (+7 lb 2 oz) 98/66 Negative <del>?</del> Negative 154 0 <del>?</del> -continues to have vag bleeding:friable cervix, yeast. Cervic closed. Recheck JV and fluconazole sent. -continues to have vag bleeding:friable cervix, yeast. Cervic closed. Recheck JV and fluconazole sent. JV- pt bleeding since 16 weeks. became worse last night after intercourse. suspect ectropion and yeast infection. no sex or anything in vagina. monistat made her feel worse. will try diflucan. 01/25/23 <del>?</del> 24w 3d 158 lb 6 oz (+15 lb 6 oz) 105/67 Negative <del>?</del> Negative 150 <del>?</del> JV- pt complains of burning with urination again. JV- pt complains of burning with urination again. has had several gbs uti's will start ampicillin prophylaxis daily after this treatment course. 02/21/23 <del>?</del> 28w 2d 160 lb 6 oz (+17 lb 6 oz) 104/64 Negative <del>?</del> Negative 145 28 <del>?</del> MH-No Vb. Good Fm. Persistent vag discharge and irritation. See exam/cultures done. Tdap, larc, 28 wk labs. 03/08/23 <del>?</del> 30w 3d 165 lb 6 oz (+22 lb 6 oz) 124/77 Negative <del>?</del> Negative 140 30 <del>?</del> JV- starting metformin for elevated glucose levels both fasting and 2 hr pp. start nsts next visit 03/13/23 <del>?</del> 31w 1d 163 lb (+20 lb) 124/78 <del>?</del> 130 <del>?</del> MH-NST only reactive 03/16/23 <del>?</del> 31w 4d 164 lb 6 oz (+21 lb 6 oz) 133/78 Negative <del>?</del> Negative 140 32 <del>?</del> SM- no vb lof good fm no regular ctx BS reveiwed 03/20/23 <del>?</del> 32w 1d 164 lb 8 oz (+21 lb 8 oz) 102/70 Negative <del>?</del> Negative 140 <del>?</del> MH-NST only reactive. 03/23/23 <del>?</del> 32w 4d 167 lb 6 oz (+24 lb 6 oz) 116/74 Negative <del>?</del> Negative 140 32 <del>?</del> SM- no vb lof good fm no regular ctx BS controlled 03/27/23 <del>?</del> 33w 1d 169 lb 4 oz (+26 lb 4 oz) 107/70 <del>?</del> 140 <del>?</del> MH-NST only reactive 03/30/23 <del>?</del> 33w 4d 165 lb (+22 lb) 89/59 Negative <del>?</del> Negative 145 <del>?</del> KW- no vb/lof/ctx. good fm. NST reactive. BS in range. 36 week US scheduled. no concerns today. 04/04/23 <del>?</del> 34w 2d 166 lb 2 oz (+23 lb 2 oz) 104/70 Negative <del>?</del> Negative 140 <del>?</del> SM- NST reactive,BS fairly controlled 04/07/23 <del>?</del> 34w 5d 166 lb 2 oz (+23 lb 2 oz) 118/75 Negative <del>?</del> Negative 140 <del>?</del> KW- NST only today. reassuring but does not meet criteria. to [facility] for BPP. Reports elevated BS after meals around 150 at times but not tracking them well. encouraged to track them to adjust meds if needed. 04/10/23 <del>?</del> 35w 1d 167 lb (+24 lb) 120/70 Negative <del>?</del> Negative 140 <del>?</del> MH-NST only and reactive. Did not bring glucose readings but states last couple of days nl. Will bring for appt in 2 days. 04/13/23 <del>?</del> 35w 4d 167 lb (+24 lb) 112/87 Negative <del>?</del> Negative 140 <del>?</del> SM- no vb lof good fm no regular ctx 04/20/23 <del>?</del> 36w 4d 171 lb (+28 lb) 107/66 Negative <del>?</del> Negative 140 36 Cephalic <del>?</del> SM- no vb lof good fm no regular ctx BS fairly controlled 04/24/23 <del>?</del> 37w 1d 168 lb 8 oz (+25 lb 8 oz) 105/66 Negative <del>?</del> Negative 130 <del>?</del> LC- no vb/ctx. less fm today. BS overall controlled, forgets to do fastings at times, when does are 80-90s. pp mostly 100-130.NST not reactive, with variables. BPP ordered. LC- no vb/ctx. less fm today. BS overall controlled, forgets to do fastings at times, when does are 80-90s. pp mostly 100-130.NST not reactive, with variables. sending to [facility] for extended monitoring and BPP ordered. NST FHR Rate Baby A Baseline: 135 Variability:: Moderate Accelerations:: 15 x 15 Decelerations:: None NST Reactive:: Yes FHR Category:: Category I Assessment & Plan (1) Non-reactive NST (non-stress test): COMMENT: extended monitoring in [facility] with cat 1 tracing, multiple accelerations. jaquan completed today 04/23 =14. safe for d/c home PLAN: Plan Patient presents for triage evaluation secondary to non-reactive nst in office. now with multiple accelerations with no decels FHT: Moderate variability reactive no decelerations category I tracing [place]: no Contractions Assessment and plan: Reactive NST, reassuring maternal and status patient discharged to home to follow-up in office. See problem list details for additional plan information. Charges/Coding Procedures Urinary/Genital 52xxx-59xxx: 29642-64 non-stress test Interp
== END 2023-04-24 16:15 | disposition home or self-care (01) ==
LOC: WPOUT 15:15 → WP 15:16
PROVIDERS: Referring Provider Registered Nurse; Visit Provider Registered Nurse
DX: O36.8330 Maternal care for abnormalities of the fetal heart rate or rhythm, third trimester, not applicable or unspecified (principal); Z3A.37 37 weeks gestation of pregnancy
CPT/HCPCS: 59025; 59050; 99221; G0378

== ENCOUNTER → 2023-04-24 | Outpatient (CLI) | payer OTHER, SELFPAY ==
--- NOTE | 2023-04-24 13:00 | US_ITS ---
HISTORY: growth -- 36 weeks. TECHNIQUE: Transabdominal pelvic ultrasound was performed. 58 images. COMPARISON: 03/23/2023. FINDINGS: INTRAUTERINE GESTATION(s): Single. PRESENTATION: Cephalic. HEART MOTION: 143 bpm. PLACENTA: Anterior, grade 3. No placenta previa. CERVIX: Not well visualized. AMNIOTIC FLUID INDEX (JAQUAN): 14.1 cm. Maximum vertical pocket 4.1 cm. biometry- BIPARIETAL DIAMETER: 9.2 cm, corresponding to 37 weeks 2 days. HEAD CIRCUMFERENCE: 32.7 cm, corresponding to 37 weeks 0 days. ABDOMINAL CIRCUMFERENCE: 32.4 cm, corresponding to 36 weeks 2 days. FEMUR LENGTH: 7 cm, corresponding to 35 weeks 5 days. ESTIMATED GESTATIONAL AGE: 36 weeks 3 days. ESTIMATED DUE DATE (NAUN): 05/19/2023. ESTIMATED WEIGHT: 2942 g corresponding to 39th percentile. US/OB Limited With Biometrics IMPRESSION: Single living intrauterine with an estimated gestational age of 36 weeks 3 days. Electronically Signed: Rosanna Giraldo MD at 13:03 EST ,
--- OUTSIDE RECORDS SUMMARY | 2023-04-24 13:49 | XMS RPT_ITS | CCD ---
Author Name Unknown Address [address] [place] [address] Organization [facility] Care Team Providers Care Briquette Operator Name Role Phone Alberteulalio Donnie F Unavailable Unavailable Babar Sinclair Unavailable Unavailable Now Nurse Unavailable Unavailable Medications Completed/Discontinued Medications Medication Drug Class(es) Dates Sig (Normalized) Sig (Original) acetaminophen 325 mg oral capsule (1 source) Start: 07-13-2016 TYLENOL 325 MG CAPS as directed ACETAMINOPHEN [id number] Nara N Cogar V[employer] E[employer] EDITOR ibuprofen 200 mg oral capsule (1 source) Nonsteroidal Anti-inflammatory Drug Start: 07-13-2016 IBUPROFEN 200 MG CAPS as directed IBUPROFEN [id number] Nara Friedman Cogar V[employer] EFFECTS EDITOR Problems Active Problems Problem Classification Problem Date [...] 07:45-0400 BMI (Body Mass Index) 26.77 kg/m2 [facility] Work Phone: 07-13-2016 07:45-0400 Body Temperature 98.4 [degF] [facility] Work Phone: 07-13-2016 07:45-0400 Body weight 70.76 kg [facility] Work Phone: 07-13-2016 07:45-0400 BP Diastolic 74 mm[Hg] [facility] Work Phone: 07-13-2016 07:45-0400 BP Systolic 118 mm[Hg] [facility] Work Phone: 07-13-2016 07:45-0400 Height 162.56 cm [facility] Work Phone: 07-13-2016 07:45-0400 Pulse (Heart Rate) 73 /min [facility] Work Phone: 07-13-2016 07:45-0400 Pulse Oximetry 98 % [facility] Work Phone: 07-13-2016 07:45-0400 Respiratory Rate 12 /min [facility] Work Phone: Encounters Encounter Date Encounter Type Care Provider Facility Start: 09-18-2017 Patient encounter Babar Rasheed cility:[facility] Start: 07-02-2017 Patient encounter Donnie moonty:[facility] Procedures Date Procedure Procedure Detail Performing Clinician Start: 07-13-2016 End: 07-13-2016 Documentation of current medications Plan of Treatment Date Care Activity Detail Author Start: 07-13-2016 End: 07-13-2016 Appointment Appointment [facility] Work Phone: Start: 07-13-2016 End: 07-13-2016 Radex wrist complete minimum 3 views X-Ray, Wrist [facility] Work Phone: Patient Education ACETAMINOPHEN% 20AND%20IB UPROFEN%20DOSING%20IN%20 CHILDREN [facility] Work Phone: Payers Date Payer Category Payer Unknown [id number] Summary Purpose Family History No Family History [...] BE BASED ON THE PRIMARY CLINICAL RECORDS. [facility]. provides no warranty or guarantee of the accuracy or completeness of information in this document.
== END | disposition home or self-care (01) ==
LOC: US 13:00
PROVIDERS: Referring Provider Obstetrics & Gynecology; Visit Provider Obstetrics & Gynecology
DX: O24.419 Gestational diabetes mellitus in pregnancy, unspecified control (principal); Z3A.36 36 weeks gestation of pregnancy
CPT/HCPCS: 76816

== ENCOUNTER 2023-05-04 15:40 | Inpatient (IN) | payer OTHER, SELFPAY ==
[2023-05-04] VITALS (8 sets, daily range): BP systolic 106–127; BP diastolic 55–80; PULSE 75–95; RESP 16–19; TEMP 36.4–37.4; O2SAT 95–99; BMI 28.6
[2023-05-04] MEDS: Lactated Ringers 1,000 ML 50 ML IV (16:40)
--- NOTE | 2023-05-04 16:50 | HP.PCM.OB_ITS ---
HPI - General General Date of Admission: 05/04/23 Date of Service: 05/04/23 HPI Narrative FIDENCIO BONDS, is a 22 F 38.4 week gestation who presents to unit from the office with nonreassuring testing. Plan Induction of labor per dr xiao. complicated by GDM Maternal Data Information NAUN Calculator Estimated Delivery Date Method Current WG Current Estimate 05/14/23 LMP (Certain) 38w 4d Final NAUN: 05/04/23 Final NAUN Source: US >20 weeks Gestational age: 38.4 weeks PFSH PFSH Home Medications multivitamin no.47-iron fum 27 mg-folate no.1 1 mg-dha 300 mg capsule (PNV-DHA) cap PO 12/02/22 [History Last Taken 05/02/23 21:00 1 cap] blood sugar diagnostic (Blood Glucose Test strips) #120 ea 02/22/23 [Rx Last Taken Unknown] blood-glucose meter #1 ea 02/22/23 [Rx Last Taken Unknown] lancets #200 ea 02/22/23 [Rx Last Taken Unknown] metformin 500 mg tablet,extended release 24 hr 500 mg PO BID GDM #60 tabs 03/08/23 [Rx Last Taken 05/02/23 21:00 500 mg] Allergy/AdvReac Type Severity Reaction Status Date / Time No Known Allergies Allergy Verified 05/04/23 15:38 Family History Grandmother Breast cancer, Onset Age: 70 Grandfather CVA (cerebral vascular accident) Myocardial infarction Surgical History (Updated 05/04/23 @ 16:51 by Debi Sánchez) History of surgery Social History adopted: No household members: significant other and other housing: house current occupational status: employed current occupation: [employer] pets and animals: No history of recent travel: No sexually active: Yes Smoking Status: Former smoker alcohol intake: never substance use type: does not use caffeine: Yes seatbelt use: always do you feel safe at home: Yes History 1 Elective abortions Hx Para 0 Spontaneous abortions Hx # Term Pregnancies Ectopic pregnancies Hx # Pregnancies Multiple births # of living children Visit Details Expected Delivery Route/Plan Labor Preferences- CB/BF classes: encouraged labor support person: Oliver labor intervention preferences: pain management options preferred: epidural if requested cut cord/dad catch: cord : yes PP control planned: discussed discussed possible routes of delivery and associated risks: [] special requests: [] Plans Covid status: [] Flu vaccine: declines Tdap vaccine: 02/21/23 Rhogam: NA LARC form signed: yes movement and labor precautions reviewed. Problem list reviewed and updated with the most current plan of care details and appropriate orders placed. Relevant counseling for the gestational age provided. Continue routine care and follow up unless otherwise noted in visit notes/problem list details OB Flowsheet Initial Weight: 143 lb Date -?-?-?-?-?-?-?-?-?-?-?-?- EGA Weight BP Urine Prot -?-?-?-?-?-?-?-?-?-?-?-?- Glucose FHR FuHt Pres Dilation -?-?-?-?-?-?-?-?-?-?-?-?- Effaced St Visit Note 12/02/22 -?-?-?-?-?-?-?-?-?-?-?-?- 16w 5d 143 lb 2 oz (+2 oz) 124/73 -?-?-?-?-?-?-?-?-?-?-?-?- 150 -?-?-?-?--?-?-?-?-?-?-?-?- KW-no vb/lof. cr amping and burning with urination. Culture sent. Anatomy US ordered. 12/28/22 -?-?-?-?-?-?-?-?-?-?-?-?- 20w 3d 150 lb 2 oz (+7 lb 2 oz) 98/66 Negative -?-?-?-?-?-?-?-?-?-?-?-?- Negative 154 0 -?-?-?-?-?-?-?-?-?-?-?-?- -continues to have vag bleeding:friable cervix, yeast. Cervic closed. Recheck JV and fluconazole sent. -continues to have vag ble eding:friable cervix, yeast. Cervic closed. Recheck JV and fluconazole sent. JV- pt bleeding since 16 weeks. became w sin last night after intercourse. suspect ectropion and yeast infection. no sex or anything in vagina. monistat made her feel worse. will try diflucan. 01/25/23 -?-?-?-?-?-?-?-?-?-?-?-?- 24w 3d 158 lb 6 oz (+15 lb 6 oz) 105/67 Negative -?-?-?-?-?-?-?-?-?-?-?-?- Negative 150 -?-?-?-?-?-?-?-?-?-?-?--?- JV- pt complains of burning with urination again. JV- pt complains of burning with urination again. has had several gbs uti's will start ampicillin prophylaxis daily after this treatment course. 02/21/23 -?-?-?-?-?-?-?-?-?-?-?-?- 28w 2d 160 lb 6 oz (+17 lb 6 oz) 104/64 Negative -?-?-?-?-?-?-?-?-?-?-?-?- Negative 145 28 -?-?-?-?-?-?-?-?-?-?-?-?- MH-No Vb. Galdino F m. Persistent vag discharge and irritation. See exam/cultures done. Tdap, larc, 28 wk labs. 03/08/23 -?-?-?-?-?-?-?-?-?-?-?-?- 30w 3d 165 lb 6 oz (+22 lb 6 oz) 124/77 Negative -?-?-?-?-?-?-?-?-?-?-?-?- Negative 140 30 -?-?-?-?-?-?-?-?-?-?-?-?- JV- starting met formin for elevated glucose levels both fasting and 2 hr pp. start nsts next visit 03/13/23 -?-?-?-?-?-?-?-?-?-?-?-?- 31w 1d 163 lb (+20 lb) 124/78 -?-?-?-?-?-?-?-?-?-?-?-?- 130 -?-?-?-?-?-?-?-?-?-?-?-?- -NST only reac tive 03/16/23 -?-?-?-?-?-?-?-?-?-?-?-?- 31w 4d 164 lb 6 oz (+21 lb 6 oz) 133/78 Negative -?-?-?-?-?-?-?-?-?-?-?-?- Negative 140 32 -?-?-?-?-?-?--?-?-?-?-?-?- SM- no vb lof go od fm no regular ctx BS reveiwed 03/20/23 -?-?-?-?-?-?-?-?-?-?-?-?- 32w 1d 164 lb 8 oz (+21 lb 8 oz) 102/70 Negative -?-?-?-?-?-?-?-?-?-?-?-?- Negative 140 -?-?-?-?-?-?-?-?-?-?-?-?- -NST only reac tive. 03/23/23 -?-?-?-?-?-?-?-?-?-?-?-?- 32w 4d 167 lb 6 oz (+24 lb 6 oz) 116/74 Negative -?-?-?-?-?-?-?-?-?-?-?-?- Negative 140 32 -?-?-?-?-?-?-?-?-?-?-?-?- SM- no vb lof go od fm no regular ctx BS controlled 03/27/23 -?-?-?-?-?-?-?-?-?-?-?-?- 33w 1d 169 lb 4 oz (+26 lb 4 oz) 107/70 -?-?-?-?-?-?-?-?--?-?-?-?- 140 -?-?-?-?-?-?-?-?-?-?-?-?- -NST only reac tive 03/30/23 -?-?-?-?-?-?-?-?-?-?-?-?- 33w 4d 165 lb (+22 lb) 89/59 Negative -?-?-?-?-?-?-?-?-?-?-?-?- Negative 145 -?-?-?-?-?-?-?-?-?-?-?-?- KW- no vb/lof/ct x. good fm. NST reactive. BS in range. 36 week US scheduled. no concerns today. 04/04/23 -?-?-?-?-?-?-?-?-?-?-?-?- 34w 2d 166 lb 2 oz (+23 lb 2 oz) 104/70 Negative -?-?-?-?-?-?-?-?-?-?-?-?- Negative 140 -?-?-?-?-?-?-?-?-?-?-?-?- SM- NST reactive ,BS fairly controlled 04/07/23 -?-?-?-?-?-?-?-?-?-?-?-?- 34w 5d 166 lb 2 oz (+23 lb 2 oz) 118/75 Negative -?-?-?-?-?-?-?-?-?-?-?-?- Negative 140 -?-?-?-?-?-?-?-?-?-?-?-?- KW- NST only tod ay. reassuring but does not meet criteria. to [facility] for BPP. Reports elevated BS after meals around 150 at times but not tracking them well. encouraged to track them to adjust meds if needed. 04/10/23 -?-?-?-?-?-?-?-?-?-?-?-?- 35w 1d 167 lb (+24 lb) 120/70 Negative -?-?-?-?-?-?-?-?-?-?-?-?- Negative 140 -?-?-?-?-?-?-?-?-?-?-?-?- MH-NST only and reactive. Did not bring glucose readings but states last couple of days nl. Will bring for appt in 2 days. 04/13/23 -?-?-?-?-?-?-?-?-?-?-?-?- 35w 4d 167 lb (+24 lb) 112/87 Negative -?-?-?-?-?-?-?-?-?-?-?-?- Negative 140 -?-?-?-?-?-?-?-?-?-?-?-?- SM- no vb lof go od fm no regular ctx 04/20/23 -?-?-?-?-?-?-?-?-?-?-?-?- 36w 4d 171 lb (+28 lb) 107/66 Negative -?-?-?-?-?-?-?-?-?-?-?-?- Negative 140 36 Cephalic -?-?-?-?-?-?-?-?-?-?-?-?- SM- no vb lof go od fm no regular ctx BS fairly controlled 04/24/23 -?-?-?-?-?-?-?-?-?-?-?-?- 37w 1d 168 lb 8 oz (+25 lb 8 oz) 105/66 Negative -?-?-?-?-?-?-?-?-?-?-?-?- Negative 130 -?-?-?-?-?-?-?-?-?-?-?-?- LC- no vb/ctx. l ess fm today. BS overall controlled, forgets to do fastings at times, when does are 80-90s. pp mostly 100-130.NST not reactive, with variables. BPP ordered. LC- no vb/ctx. less fm today . BS overall controlled, forgets to do fastings at times, when does are 80-90s. pp mostly 100-130.NST not reactive, with variables. sending to for extended monitoring and BPP ordered. 04/27/23 -?-?--?-?-?-?-?-?-?-?-?-?- 37w 4d 169 lb (+26 lb) 117/79 -?-?-?-?-?-?-?-?-?-?-?-?- -?-?-?-?-?-?-?-?-?-?-?-?- SM- BW controlle d, no vb lof good fm plan IOL 39 05/01/23 -?-?-?-?-?-?-?-?-?-?-?-?- 38w 1d 168 lb 2 oz (+25 lb 2 oz) 129/82 Negative -?-?-?-?-?-?-?-?-?-?-?-?- Negative 140 39 Cephalic 1 -?-?-?-?-?-?-?-?-?-?-?-?- 70 -3 JV- reacti ve nst, iol set up for 05/08/23 at 7 pm for cytotec 05/04/23 -?-?-?-?-?--?-?-?-?-?-?-?- 38w 4d 166 lb 2 oz (+23 lb 2 oz) 127/84 Negative -?-?-?-?-?-?-?-?-?-?-?-?- Negative 145 -?-?-?-?-?-?-?-?-?-?-?-?- KW-NST only. lat e and variable decel. to [facility] for BPP and extended monitoring. NST FHR Rate Baby A Baseline: 140 Variability:: Moderate Accelerations:: 15 x 15 Decelerations:: None NST Reactive:: Yes FHR Category:: Category I Uterine Activity:: irregular ROS Constitutional Constitutional: Denies change in weight, fatigue, fever(s), headache(s), poor appetite or weakness Eyes Eyes: Denies blurry vision, change in vision, floaters, seeing flashes or spots in vision ENT HEENT: Denies dizziness, headache(s), loss taste/smell or sore throat Cardiovascular Cardiovascular: Denies chest pain, dizziness, dyspnea, irregular heart rhythm, lightheadedness, palpitations or rapid heart rate Respiratory/Chest Respiratory/Chest: Denies change in mental status, chest tightness, cough, dyspnea or breast pain Gastrointestinal Gastrointestinal: Denies anorexia, chewing difficulty, constipation, diarrhea or weight changes Genitourinary Genitourinary: Denies difficulty urinating, dysuria, flank pain, genital pain, urinary frequency or urinary urgency Musculoskeletal Musculoskeletal: Denies back pain, difficulty walking, extremity pain, joint pain, muscle cramps or muscle weakness Integumentary Integumentary: Denies lesions or unusual bruising Neurologic Neurologic: Denies abnormal movements, abnormal speech, dizziness, numbness, seizure-like activity, syncope or weakness Psychiatric Psychiatric: Denies behavioral changes, change in appetite, confusion, depression, homicidal ideation, suicidal ideation or suicidal thoughts Endocrine Endocrinology: Denies excessive sweating, polydipsia or polyuria Hematologic/Lymphatic Hematologic/Lymphatic: Denies anemia Allergic/Immunologic Allergic/Immunologic: Denies itchy eyes, lip swelling, throat swelling, tongue swelling or wheezing Vital Signs Vital Signs Vital Signs: 05/04/23 15:31 05/04/23 15:31 05/04/23 15:31 Temperature Temperature Source Pulse Rate 95 Respiratory Rate Blood Pressure 106/66 BP Systolic 106 BP Diastolic 66 Pulse Ox 95 05/04/23 15:31 05/04/23 15:31 05/04/23 15:31 Temperature 98.6 F Temperature Source Temporal Pulse Rate Respiratory Rate 16 Blood Pressure BP Systolic BP Diastolic Pulse Ox Weight Weight: 166 lb 14.239 oz Body Mass Index (BMI) 28.6 Physical Exam Const alert, oriented x3 and no apparent distress General Appearance: cooperative Orientation / Consciousness: awake HEENT normocephalic Neck full ROM Lymph Lymphatic: no lymphadenopathy noted Chest inspection of chest normal Resp normal respiratory effort and normal air movement Effort and Inspection: able to speak in complete sentences and symmetric chest movement GI soft to palpation and non-tender Inspection: gravid Palpation: soft; Negative for tender external exam normal Back/Spine normal to inspection Extremity normal to inspection and full ROM Skin no rashes or lesions noted Psych mental status grossly normal Appearance: grossly normal Speech: normal speech Labs Labs Labs: Blood Type A POSITIVE Antibody Screen Pending Hct 31.2 % (37-47) L Hgb 10.9 g/dL (12.0-15.0) L Obstetrics Ultrasound Syphilis Total Ab Non-reactive VZV IgG Antibody < 135 index (Immune >165) L Rubella IgG Antibody Non-Reactive (Nonreactive) Hep Bs Antigen Non-Reactive (Nonreactive) Hepatitis C Antibody Non-Reactive (Nonreactive) Chlamydia DNA (ANGELLA) Negative (Negative) N.gonorrhoeae DNA (ANGELLA) Negative (Negative) HIV 1&2 Antibody Non-Reactive (Nonreactive) Glucose 1 Hr 50 gm 190 mg/dL (70-140) H Miscellaneous Test Assessment & Plan (1) Encounter for induction of labor: PLAN: Patient presents IOL, plan management for with pitocin/AROM/berumen bulb. Pain management: plans epidural. GBS positive. Management of any complications: GDM I have reviewed the [facility] and made any clinically relevant updates. (2) Gestational diabetes: QUALIFIERS: Gestational diabetes mellitus control: diet-controlled Trimester: second trimester Qualified Code(s): O24.410 - Gestational diabetes mellitus in , diet controlled COMMENT: QID glucose testing, ref to dietitian. Growth US at 36 wk starting metformin 03/08/23 on 500mg in am, nst's starting 32 weeks twice weekly. deliver 39 weeks (3) Anemia in preg-unspec: QUALIFIERS: Trimester: third trimester Qualified Code(s): O99.013 - Anemia complicating , third trimester COMMENT: add FE (4) Recurrent urinary tract infection affecting : QUALIFIERS: Trimester: third trimester Qualified Code(s): O23.43 - Unspecified infection of urinary tract in , third trimester COMMENT: recurrent GBS infections. starting daily ampicillin. (5) Maternal varicella, non-immune: COMMENT: Patient was educated on vaccine after delivery (6) Positive GBS test: COMMENT: GBS bacteruria-per [place] needs antibiotics at labor (7) Supervision of high-risk : QUALIFIERS: Trimester: third trimester Qualified Code(s): O09.93 - Supervision of high risk , unspecified, third trimester COMMENT: PRR NAUN 05/14/23 girl Ashli Spouse Oliver (8) Family history of spina bifida: COMMENT: FOB's mother and father had spina bifida, no siblings. Declined genetic/carrier screening. (9) : QUALIFIERS: Weeks of gestation: 38 weeks Qualified Code(s): Z3A.38 - 38 weeks gestation of COMMENT: Declined carrier and genetic testing, ntd screen declined nl anatomy. Charges/Coding Multi Select Codes Urinary/Genital Urinary/Genital CPT Codes: No Charge
[2023-05-04 16:53] LABS: Absolute Lymphocyte Count 1.48 X10^3/uL (0.83-4.51); Absolute Neutrophil Count 7.2 X10^3/uL (2.0-7.7); Basophil# 0.02 X10^3/uL; Basophil% 0.2 % (0-1); Eosinophil# 0.07 X10^3/uL; Eosinophils% 0.7 % (0-5); Hematocrit 34.2 % (37-47); Hemoglobin 11.5 g/dL (12.0-15.0); Lymphocyte # 1.48 X10^3/ul (0.83-4.51); Lymphocyte % 15.6 % (19-41); Mean Corp Hgb Conc 33.6 g/dL (32-36); Mean Corpuscular Hgb 30.3 pg (27.0-32.0); Mean Corpuscular Volume 90.2 fL (81-99); Mean Platelet Vol. 9.9 fl (6.2-12.0); Monocyte# 0.63 X10^3/uL; Monocyte% 6.6 % (0-10); NRBC Flagged by Analyzer 0 % (0-5); Neutrophil # 7.21 X10^3/uL (2.7-7.7); Neutrophil % 76.2 % (47-70); Platelet Count 250 K/mm3 (150-450); RBC Distribution Width CV 13.6 % (11.6-14.6); Red Blood Count 3.79 M/mm3 (4.2-5.4); White Blood Count 9.5 K/mm3 (4.4-11.0)
[2023-05-04] MEDS: Oxytocin 15 Units/NS 250ml 15 UNITS/250 ML IV.SOLN 2 UNITS IV (17:12)
[2023-05-04 17:32] LABS: Bedside Glucose 83 mg/dL (74-106)
[2023-05-04 18:01] LABS: Syphilis Antibodies Non-reactive
[2023-05-04] MEDS: 0.9% Normal Saline Single 100 ML IV.SOLN. INTRA-UTER (18:08)
[2023-05-04 18:31] LABS: Bedside Glucose 82 mg/dL (74-106)
[2023-05-04] MEDS: Penicillin G Pot 5,000,000 UNITS in 0.9% Normal Saline (100mL MB+) 100 ML 150 UNITS IV (20:05)
[2023-05-04] MEDS: LACTATED RINGERS 500 ML 999 ML IV (21:54)
[2023-05-04] MEDS: Ondansetron 4 MG/2 ML Vial IV (22:30)
[2023-05-04] MEDS: Acetaminophen 500 MG Tablet PO (22:39)
[2023-05-04 23:04] LABS: Bedside Glucose 87 mg/dL (74-106)
[2023-05-04] MEDS: Penicillin G 3,000,000 Units 50 ML 100 UNITS IV (23:51)
[2023-05-05] VITALS (88 sets, daily range): BP systolic 104–148; BP diastolic 52–89; PULSE 73–200; RESP 16–20; TEMP 36.7–37.3; O2SAT 92–100
[2023-05-05 02:18] LABS: Bedside Glucose 89 mg/dL (74-106)
[2023-05-05] MEDS: Ondansetron 4 MG/2 ML Vial IV (03:28)
[2023-05-05] MEDS: Penicillin G 3,000,000 Units 50 ML 100 UNITS IV ×2 (04:00→07:53)
[2023-05-05] MEDS: Amnioinfusion- 0.9% NS 1,000 ML IV.SOLN. 1000 ML INTRA-UTER (06:20)
[2023-05-05] MEDS: LACTATED RINGERS 500 ML 999 ML IV (07:00)
[2023-05-05] MEDS: fentaNYL-bupivacaine (epidural) 100 ML BAG EPIDURAL (07:12)
[2023-05-05 08:08] LABS: Bedside Glucose 99 mg/dL (74-106)
[2023-05-05 08:08] LABS: Bedside Glucose 106 mg/dL (74-106)
[2023-05-05] MEDS: Lactated Ringers 1,000 ML 200 ML IV (09:48)
--- NOTE | 2023-05-05 11:04 | EX.PCM.OBRPT ---
Assessment & Plan (1) intolerance to labor, delivered, current hospitalization: (2) Encounter for induction of labor: (3) Gestational diabetes: QUALIFIERS: Gestational diabetes mellitus control: diet-controlled Trimester: second trimester Qualified Code(s): O24.410 - Gestational diabetes mellitus in , diet controlled COMMENT: QID glucose testing, ref to dietitian. Growth US at 36 wk starting metformin 03/08/23 on 500mg in am, nst's starting 32 weeks twice weekly. deliver 39 weeks (4) Anemia in preg-unspec: QUALIFIERS: Trimester: third trimester Qualified Code(s): O99.013 - Anemia complicating , third trimester COMMENT: add FE (5) Recurrent urinary tract infection affecting : QUALIFIERS: Trimester: third trimester Qualified Code(s): O23.43 - Unspecified infection of urinary tract in , third trimester COMMENT: recurrent GBS infections. starting daily ampicillin. (6) Maternal varicella, non-immune: COMMENT: Patient was educated on vaccine after delivery (7) Positive GBS test: COMMENT: GBS bacteruria-per [place] needs antibiotics at labor (8) Supervision of high-risk : QUALIFIERS: Trimester: third trimester Qualified Code(s): O09.93 - Supervision of high risk , unspecified, third trimester COMMENT: PRR NAUN 05/14/23 girl Ahsli Spouse Oliver (9) Family history of spina bifida: COMMENT: FOB's mother and father had spina bifida, no siblings. Declined genetic/carrier screening. (10) : QUALIFIERS: Weeks of gestation: 38 weeks Qualified Code(s): Z3A.38 - 38 weeks gestation of COMMENT: Declined carrier and genetic testing, ntd screen declined nl anatomy. Maternal Data Information NAUN Calculator Estimated Delivery Date Method Current WG Current Estimate 05/14/23 LMP (Certain) 38w 5d Final NAUN: 05/14/23 Final NAUN Source: LMP Gestational age: 38 weeks 5 days Vaginal Delivery Maternal Presentation Maternal Presentation: Medically Indicated Induction Maternal Presentation: late decels noted in office NST, patient induction started 05/04/23 Type of Induction: Pitocin, Blakely Bulb and Amniotomy Medical Reason for Induction: - (Gestational diabetes, heart rate decelerations ) Operative Information Date of Procedure: 05/05/23 Pre-Operative Diagnosis: 22 y/o with Gestational diabetes at 38 weeks 5 days, decelerations and intolerance to labor. Post-Operative Diagnosis: 22 y/o with Gestational diabetes at 38 weeks 5 days, decelerations and intolerance to labor. Surgery / Procedure Performed: Vacuum Assisted Vaginal Delivery Type of Anesthesia: Epidural Drain: Blakely to straight drain Estimated Blood Loss: 200cc Time of Delivery: 10:45 Findings Description of Procedure: Details of delivery: This is a 22 year old woman who was admitted to labor and delivery for decelerations and gestational diabetes. The decision was made to perform a vacuum extraction due to persistent late declerations for 2 hours with minimal variability at times. The risk benefits and alternatives of the procedure were discussed with the patient and verbal consent was obtained. The was noted to be at a +2 station, the cervix was completely dilated. The infant's head was noted to be in the right occiput anterior presentation. The vacuum was placed in the correct placement in front of the posterior fontanelle. This was confirmed digitally. With the patient's next contraction, the vacuum was inflated and a gentle downward pressure was used to assist with bringing the baby's head to a +3 station. With 2 pull and 1 pop offs. The head was delivered atraumatically. No nuchal cord was noted. The anterior shoulder followed by the posterior shoulder were delivered without difficulty. The infant was handed off to the patient's chest. The infant was found to be vigorous and crying and moving of all 4 extremities. The mouth and nares were bulb suctioned. After 60 second delay the cord was clamped and cut and the infant was handed off to the awaiting nurses for routine assessment. The placenta was delivered with gentle traction and uterine massage. Inspection of the vagina cervix and perineum was performed. There were no lacerations to the vagina or to the cervix. The peritoneum was found to have a 1st degree perineal laceration. The perineal laceration was closed using a 2-0 Vicryl in the usual sterile fashion. The patient tolerated the procedure well sponge lap and needle counts were correct x2 and she is now recovering in stable condition. Presentation: Vertex Amniotic Membrane Rupture Type: Artificial Amniotic Fluid Description: Moderate meconium Placental Delivery Description: Spontaneous Placenta Disposition: [facility] Cord Vessel Description: 3 Vessels Cord Entanglement: None Infant A Gender: Female (1 minute): 9 (5 minute): 9 Delayed Cord Clamping: Yes Post Vaginal Delivery Medications Given After Delivery: IV Pitocin Episiotomy Description: None Laceration: 1st degree Complication Complications: None Multi Select Codes Urinary/Genital Urinary/Genital CPT Codes: 17879 Vaginal Delivery [facility]
--- NOTE | 2023-05-05 11:13 | DCINST_ITS ---
Discharge Instructions Diet Discharge Diet: No restrictions Activity Discharge Activity: Return to Normal Activity, May Not Drive (while taking narcotic pain medications.) and May Shower May resume sexual activity in: 4-6 weeks Dressing / Incision Call your doctor if your incision/area has: Continuous Slow Oozing, Sudden Increased Bleeding, Increased Pain/ Swelling, Increased Redness and Foul Smelling Discharge Follow Up Care Please Follow Up With: Marivel Hernandez, DO When: Call [phone] to make an appointment with your doctor in 6 weeks. If you had elevated blood pressure or 4th degree laceration, you will need to be seen in 2 weeks. Test Results: Test results from this visit will be discussed in further detail at your follow- up appointment, if applicable. Discharge Plan Admission Admit Date/Time: 05/04/23 15:40 Attending Provider: Marivel Hernandez Primary Care Provider: Devin Physician,Eileen Primary Discharge Orders/Prescriptions Prescriptions: No Action PNV-DHA 27 mg iron-1 mg -300 mg capsule PO metformin 500 mg tablet extended release 24 hr 500 mg PO BID Qty: 60 3RF (DME) blood-glucose meter Misc See Rx Instructions .MEDSUPPLY Qty: 1 0RF Rx Instructions: As directed- Test fasting and 2 hours after meals (DME) lancets Misc See Rx Instructions .MEDSUPPLY Qty: 200 4RF Rx Instructions: As directed-fasting & 2 HR post meals (DME) Blood Glucose Test Strip See Rx Instructions .Route Qty: 120 5RF Rx Instructions: As directed-fasting & 2 hr post meals Referrals / Follow Up: Care Physician,No Primary [Primary Care Provider] -
[2023-05-05 11:23] LABS: Bedside Glucose 120 mg/dL (74-106)
[2023-05-05 11:23] LABS: Bedside Glucose 103 mg/dL (74-106)
[2023-05-05] MEDS: Oxytocin 15 Units/NS 250ml 15 UNITS/250 ML IV.SOLN 83 UNITS IV (11:25)
[2023-05-05] MEDS: 0.9% Saline Lock 10 ML Syringe IV (15:20)
[2023-05-05] MEDS: Ibuprofen 600 MG Tablet PO (16:21)
[2023-05-05] MEDS: Acetaminophen 500 MG Tablet 1000 MG PO (20:15)
[2023-05-06] VITALS (10 sets, daily range): BP systolic 109–118; BP diastolic 55–71; PULSE 8–87; RESP 14–18; TEMP 36.2–36.9; O2SAT 82–98
[2023-05-06 05:15] LABS: Bedside Glucose 85 mg/dL (74-106)
[2023-05-06] MEDS: Benzocaine/Lanolin/Aloe Vera 1 SPRAY EACH TOPICAL (09:35)
[2023-05-06] MEDS: Ibuprofen 600 MG Tablet PO (09:37)
--- NOTE | 2023-05-06 09:59 | PCM.PN.OB ---
Subjective Subjective Patient doing well without complaints. Tolerating PO. Ambulating and voiding without difficulty. Feeding well. Denies chest pain, shortness of breath, calf pain/swelling, fevers, chills, lightheadedness. Objective Data Objective Data Vital Signs: Vital Signs Temp Pulse Resp BP Pulse Ox O2 Del Method 97.7 F L 78 16 110/59 L 97 Room Air 05/06/23 07:39 05/06/23 07:39 05/06/23 07:39 05/06/23 07:39 05/06/23 07:39 05/06/23 07:39 Oxygen Delivery Method Room Air Weight: 166 lb 14.239 oz Body Mass Index (BMI) 28.6 Intake & Output: Intake and Output for Last 24 Hours 05/04/23 05/05/23 05/06/23 23:59 23:59 23:59 Intake Total 627.50 / 627.50 2127.50 / 2127.50 Output Total 325 / 325 950 / 950 400 / 400 Balance 302.50 / 302.50 1177.50 / 1177.50 -400 / -400 Lab / Micro Data 05/04/23 16:40 Labs: Laboratory Results - last 24 hr 05/05/23 09:46: POC Glucose 103 05/05/23 10:57: POC Glucose 120 H 05/06/23 04:57: POC Glucose 85 ROS Constitutional Constitutional: Denies chills, fatigue, fever(s), poor appetite or weakness Eyes Eyes: Denies blurry vision, change in vision, seeing flashes or spots in vision ENT HEENT: Denies dizziness, headache(s), loss taste/smell or sore throat Cardiovascular Cardiovascular: Denies chest pain, dizziness, dyspnea, irregular heart rhythm, palpitations or rapid heart rate Respiratory/Chest Respiratory/Chest: Denies chest tightness, cough, dyspnea or breast pain Gastrointestinal Gastrointestinal: Denies abdominal pain, constipation or vomiting Genitourinary Genitourinary: Denies dysuria or flank pain Musculoskeletal Musculoskeletal: Denies difficulty walking, joint pain, limited range of motion or numbness Neurologic Neurologic: Denies abnormal movements, abnormal speech, dizziness, numbness, seizure-like activity or syncope Psychiatric Psychiatric: Denies anxiety, behavioral changes, change in appetite, confusion, depression or suicidal thoughts Physical Exam Const alert, oriented x3 and no apparent distress General Appearance: cooperative and comfortable Resp normal respiratory effort Cardio regular rate GI normal to inspection, nondistended, normoactive bowel sounds GI Narrative: uterus is firm below umbilicus Palpation: soft Back/Spine no CVA tenderness and thoraco-lumbar ROM normal Extremity normal to inspection, no clubbing, cyanosis or edema, no calf tenderness and no pedal edema Psych mental status grossly normal, thought process normal, cooperative, affect normal, speech normal, activity/motor behavior normal, denies homicidal ideation and denies suicidal ideation Assessment & Plan (1) Status post vacuum-assisted vaginal delivery: PLAN: s/p PPD # 1 1. routine post delivery care 2. breast feeding- support given 3. rh positive 4. rubella immune
--- NOTE | 2023-05-06 11:29 | CASEMGMT ---
Social Work Assessment Labor and Delivery Unit Patient Address:[address] [place], [place] [id number] Phone number: [phone] Date of Referral: 05/06/23 Time of Referral:? [phone] Referred By: Marivel Hernandez Date of Intervention: 05/06/23?? Time of Intervention:? 1044 Reason for Referral:? resources Sw completed chart review and acknowledges social work consult entered due to need for resources for parents. Sw presented to bedside and introduced self to mother of baby (MOB- Bernice) and father of baby (FOB- Oliver). Sw explained sw role during hospitalization and completed psychosocial assessment. History obtained from: medical records, MOB and FOB Household composition: MOB states that at this time she and FOB reside with paternal grandparents, FOB's sister and brother in law and their children. MOB denies any issues or concerns with current housing, stating that paternal family is a good support for her and FOB. Patient's parent/guardian status:? ?MOB states that she and FOB have been together since November of 2021, they met while working together at [email or web address] [employer]. baby is first baby for MOB, and second baby for FOB. FOB has another child, 8 year old son, Joshua. FOB stepped out of room momentarily and MOB denies domestic violence or intimate partner violence. Medical History: ?JERALD is 22 year old female who is 1, para 0-now 1 following labor and delivery of . Jerald received routine care with [facility] during . JERALD presented to hospital on 05/05/23 for an induction of labor. JERALD delivered baby at 38 weeks gestation via vaginal delivery. baby, Ashli Reynaga, was born weighing 7lb and her apgars were 9 and 9 at one and five minutes of life, respectfully. JERALD states that she is breast feeding but is worried about her latch. MOB is open to meeting with supports outpatient. Educational Status:? Both parents graduated from high school. Financial Status: Both parents are employed at [employer]. FOB states that he is able to take off as much time as he needs. MOB states that she is taking 6 weeks off of work. Supplies:??MOB reports to obtaining all necessary baby supplies, including: car seat, safe sleep space, clothes, diapers and wipes. JERALD states that she is getting a breast pump through insurance. Childcare/Caregiver(s):? JERALD reports that she will be the primary caregiver to baby along with ROSMERY when he is not working. MOB states that if both parents are working they have family members that will be able to provide childcare. Transportation:?? JERALD has a drivers license and access to reliable transportation- no barriers. ROSMERY does not have a drivers license. Programs/Agencies Involved: ???JERALD states that she is in the process of getting connected to insurance through [employer]- and was informed that baby also eneds to be added to insurance plan within 30 days. MOB states that she is also getting connected to WIC. Sw encouraged JERALD to call to get an apt as soon as she can due to some counties being backed up for several weeks. Children Services/Legal Issues:??No history of involvement, no issues or concerns warranting referral to be made at this time. ? Behavioral Health Issues: ??Mental Health History:??ROSMERY states that he has been diagnosed with anxiety- and is prescribed psychotropic medication by his PCP, but he is not sure what the brand is. MOB denies mental health diagnoses. ? Substance Use History:?JERALD denies substance use prior to and during . ? Family History: JERALD denies family history of drug use and mental health diagnoses, MOB states that she is not 100% sure about ROSMERY's family. ? Drug Screens: ??No drug screens observed in chart review. Family/Social Stressors:?While meeting with parents, ROSMERY appeared to be reserved, would not make eye contact and was on his phone. ROSMERY left room momentarily. Suha asked JERALD if something is wrong. MOB states that ROSMERY told her he was going to take a 30 minute nap, but then was asleep for 3 hours. MOB states that she woke him up and he is upset. MOB states that she also wants to stay one more night, and ROSMERY is upset about this because he wants to leave. Suha provided support and told JERALD to listen to her body and take advantage of staying one more night to obtain help from nursing/ staff with nursing. Support Systems: JERALD states that her mom and paternal family are supportive. Depression/Shaken Baby/Safe Sleeping:? Sw educated parents on signs and symptoms of baby blues and depression and anxiety. Parents express understanding. FOB states that he believes that his anxiety got worse after his son was born. Sw educated parents on shaken baby prevention and ABCs of safe sleep. Parents express understanding. ASSESSMENT:? MOB and baby admitted following labor and delivery of . MOB sitting in bed and receptive to meeting with social work to complete psychosocial assessment. MOB observed holding and nursing baby, providing appropriate and loving hands on care of . MOB states to obtaining all necessary baby supplies and has natural supports in place. Obvious tension between parents, but that seemed to subside after FOB stepped out of room for several minutes. Sw provided education, support and active listening while meeting with MOB. PLAN:?MOB and baby to be discharged when medically ready. ?No other services requested or indicated. Booker Trimble, [employer] PA[employer] SUPERVISOR, [employer]
[2023-05-06] MEDS: Acetaminophen 500 MG Tablet 1000 MG PO (13:22)
[2023-05-06] MEDS: MEASLES,MUMPS,RUBELLA VACC/PF 0.5 ML SC (14:06)
[2023-05-07 01:50] VITALS: BP 113/65; PULSE 72; RESP 16; TEMP 37.1; O2SAT 94
[2023-05-07 01:51] VITALS: BP 113/65; PULSE 75; O2SAT 94
[2023-05-07] MEDS: Ibuprofen 600 MG Tablet PO ×2 (01:58→09:32)
[2023-05-07 07:27] VITALS: PULSE 77; O2SAT 95
[2023-05-07 07:28] VITALS: BP 114/65; PULSE 74
[2023-05-07 07:40] VITALS: BP 114/65; PULSE 72; RESP 16; TEMP 37; O2SAT 96
[2023-05-07] MEDS: Senna/Docusate Sodium 1 Tablet PO (07:41)
[2023-05-07] MEDS: Acetaminophen 500 MG Tablet 1000 MG PO (07:42)
--- NOTE | 2023-05-07 10:04 | PCM.DC.SUM ---
Providers Date of Admission: 05/04/23 Primary Care Physician: Eileen Primary Care Phys Reason For Visit: VAGINAL DELIVERY Diagnosis Discharge Diagnosis (1) Status post vacuum-assisted vaginal delivery: Status: Acute Code(s): Z87.59 - Personal history of other complications of , childbirth and the puerperium Plan: s/p PPD # 1 1. routine post delivery care 2. breast feeding- support given 3. rh positive 4. rubella immune Medications at Discharge Home Medications multivitamin no.47-iron fum 27 mg-folate no.1 1 mg-dha 300 mg capsule (PNV-DHA) cap PO 12/02/22 blood sugar diagnostic (Blood Glucose Test strips) #120 ea 02/22/23 blood-glucose meter #1 ea 02/22/23 lancets #200 ea 02/22/23 metformin 500 mg tablet,extended release 24 hr 500 mg PO BID GDM #60 tabs 03/08/23 Hospital Course Operations None Procedures - (vacuum assisted vaginal delivery ) Summary of Care Provided Minutes Spent on Discharge: 15 Hospital Course: The patient was admitted to Labor and delivery for induction of labor due to decelerations in the office. She delivered on 05/05/2023 with a vauum assistance due to decelerations with pushing. She recovered well on ppd #1 and by ppd #2 she was requesting dc to home. Physical Exam Const alert, oriented x3 and no apparent distress General Appearance: cooperative and comfortable Resp normal respiratory effort Cardio regular rate GI normal to inspection, nondistended, normoactive bowel sounds GI Narrative: uterus is firm below umbilicus Palpation: soft Back/Spine no CVA tenderness and thoraco-lumbar ROM normal Extremity normal to inspection, no clubbing, cyanosis or edema, no calf tenderness and no pedal edema Psych mental status grossly normal, thought process normal, cooperative, affect normal, speech normal, activity/motor behavior normal, denies homicidal ideation and denies suicidal ideation Weight / BMI Weight Weight: 166 lb 14.239 oz Body Mass Index (BMI) 28.6 ABG / Lab / Microbiology Data 05/04/23 16:40 D/C Instructions Discharge Diet: No restrictions May resume sexual activity in: 4-6 weeks Call your doctor if your incision/area has: Continuous Slow Oozing, Sudden Increased Bleeding, Increased Pain/ Swelling, Increased Redness and Foul Smelling Discharge Please Follow Up With: Marivel Hernandez, DO When: Call [phone] to make an appointment with your doctor in 6 weeks. If you had elevated blood pressure or 4th degree laceration, you will need to be seen in 2 weeks. Meaningful Use Info Meaningful Use Diagnoses (Choose all that apply): None applicable Discharge Plan Admission Admit Date/Time: 05/04/23 15:40 Attending Provider: Marivel Hernandez Primary Care Provider: Care Physician,Eileen Primary Discharge Orders/Prescriptions Prescriptions: No Action PNV-DHA 27 mg iron-1 mg -300 mg capsule PO metformin 500 mg tablet extended release 24 hr 500 mg PO BID Qty: 60 3RF (DME) blood-glucose meter Misc See Rx Instructions .MEDSUPPLY Qty: 1 0RF Rx Instructions: As directed- Test fasting and 2 hours after meals (DME) lancets Misc See Rx Instructions .MEDSUPPLY Qty: 200 4RF Rx Instructions: As directed-fasting & 2 HR post meals (DME) Blood Glucose Test Strip See Rx Instructions .Route Qty: 120 5RF Rx Instructions: As directed-fasting & 2 hr post meals Referrals / Follow Up: Care Physician,No Primary [Primary Care Provider] -
== END 2023-05-07 11:50 | disposition home or self-care (01) | DRG 806 ==
LOC: WPOUT 15:44 → WP 15:44
PROVIDERS: Admitting Provider Obstetrics & Gynecology; Referring Provider Obstetrics & Gynecology; Visit Provider Obstetrics & Gynecology
DX: O76 Abnormality in fetal heart rate and rhythm complicating labor and delivery (principal); Z37.0 Single live birth; O23.43 Unspecified infection of urinary tract in pregnancy, third trimester; D64.9 Anemia, unspecified; O24.425 Gestational diabetes mellitus in childbirth, controlled by oral hypoglycemic drugs; O77.0 Labor and delivery complicated by meconium in amniotic fluid; Z87.891 Personal history of nicotine dependence; O99.824 Streptococcus B carrier state complicating childbirth; O70.0 First degree perineal laceration during delivery; Z3A.38 38 weeks gestation of pregnancy; Z82.79 Family history of other congenital malformations, deformations and chromosomal abnormalities; B95.1 Streptococcus, group B, as the cause of diseases classified elsewhere; O99.02 Anemia complicating childbirth
CPT/HCPCS: 59025; 59050; 82962; 85025; 86780; 86850; 86900; 86901; 99221; J7030; J7120; A4216; G0378; J2405

== ENCOUNTER → 2023-06-16 | Outpatient (CLI) | payer OTHER, SELFPAY | END | disposition home or self-care (01) | LOC: LABSPEC 17:04 | PROVIDERS: Referring Provider Obstetrics & Gynecology; Visit Provider Obstetrics & Gynecology | DX: R30.0 Dysuria (principal); N89.8 Other specified noninflammatory disorders of vagina | CPT/HCPCS: 87070; 87086; 87088; 87205 ==

== ENCOUNTER → 2024-07-08 | Outpatient (CLI) | payer OTHER, SELFPAY ==
[2024-07-10 21:08] LABS: Chlamydia By Nucleic Acid AMP Negative (Negative); Gonococcus By Nucleic Acid AMP Negative (Negative)
[2024-07-12 10:13] LABS: HPV Reflexed? NOT INDICATED
== END | disposition home or self-care (01) ==
LOC: LABSPEC 15:47
PROVIDERS: Referring Provider Advanced Practice Midwife; Visit Provider Advanced Practice Midwife
DX: Z12.4 Encounter for screening for malignant neoplasm of cervix (principal); N89.8 Other specified noninflammatory disorders of vagina; Z20.2 Contact with and (suspected) exposure to infections with a predominantly sexual mode of transmission
CPT/HCPCS: 87070; 87205; 87491; 87591; 88175; G0145